=== PATIENT | female | born 1960 | race Caucasian/White ===

== ENCOUNTER 2016-11-19 17:32 | Emergency (ER) | payer SELFPAY ==
[~2016-11-19] VITALS: Ht 165.1 cm; Wt 53.8 kg
[~2016-11-19 17:32] MED LIST: ADDE20 PO; OXYC1TAB63 PO; XANA2TAB2 PO
[2016-11-19 17:36] VITALS: BP 124/61; PULSE 98; RESP 16; TEMP 99.5; O2SAT 100
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
--- NOTE | 2016-11-19 18:13 | RADHPO ---
EXAM DATE/TIME: 11/19/2016 17:57 [facility] COMPARISON: No previous studies available for comparison. INDICATIONS : Left 3rd digit pain and swelling post injury last evening. MEDICAL HISTORY : None. SURGICAL HISTORY : None. ENCOUNTER: Initial ACUITY: 1 day PAIN SCORE: 8/10 LOCATION: Left proximal phalangeal joint FINDINGS: Soft tissue swelling is noted involving the left third digit. There is no acute fracture or dislocati on. CONCLUSION: No acute fracture or dislocation. Soft tissue swelling involving the left third digit. Lamonte Lugo MD on November 19, 2016 at 18:10 Board Certified Radiologist. This report was verified electronically.
[2016-11-19] MEDS ORDERED: IBUP800T23 PO (18:25)
== END 2016-11-19 18:30 | disposition home or self-care (01) ==
LOC: PHEFT 17:32
DX: S60.032A Contusion of left middle finger without damage to nail, initial encounter (principal); W50.0XXA Accidental hit or strike by another person, initial encounter
CPT/HCPCS: 73130; 99283

== ENCOUNTER 2016-11-26 20:54 | Emergency (ER) | payer OTHER ==
[~2016-11-26] VITALS: Ht 165.1 cm; Wt 55.0 kg
[~2016-11-26 20:54] MED LIST changes: -ADDE20 PO; +IBUP800T23 PO; -OXYC1TAB63 PO; -XANA2TAB2 PO
[2016-11-26 21:03] VITALS: BP 112/74; PULSE 90; RESP 18; TEMP 97.9; O2SAT 100
[2016-11-26 21:38] VITALS: BP 115/67; PULSE 84; RESP 16; TEMP 98.9; O2SAT 98
--- NOTE | 2016-11-26 21:40 | PD ---
HPI Chief Complaint: Psychiatric Symptoms Time Seen by Provider: 21:34 Travel History International Travel<30 days: No Contact w/Intl Traveler<30days: No Traveled to known affect area: No History of Present Illness HPI 56-year-old female brought in by PD under Bennett act. According to the Bennett act the patient does not have her chronic medications to control her suicidal thoughts that she has been self-medicating with alcohol and narcotics. The Bennett act states that the patient wants to harm herself and does not want to wake up in the morning. Patient admits to drinking alcohol today. She states that she usually takes Xanax and Adderall that is prescribed by her primary care physician, however she is out of these medications. She denies using any illicit drugs today. She denies any physical complaints. Upon arrival to the emergency department the patient was very aggressive toward staff and was placed in 4 point restrains as she was a danger to both herself and staff. PFSH Past Medical History Blood Disorders: No Bipolar Disorder: Yes Anxiety: Yes Depression: Yes Cardiovascular Problems: No COPD: Yes Diabetes: No Diminished Hearing: No Endocrine: No Fibromyalgia: Yes GERD: Yes Genitourinary: No Hepatitis: Yes ( Hep C) Immune Disorder: No Musculoskeletal: Yes (Chronic low back pain) Neurologic: Yes ("Nerve problems" back and neck ) Psychiatric: Yes Reproductive: No Respiratory: Yes (COPD) Immunizations Current: Yes Ulcer: Yes ?: Not Menopausal: Yes : 5 Para: 3 Miscarriage: 2 Dilation and Curettage (D&C): Yes Past Surgical History Oral Surgery: Yes (Teeth) Tonsillectomy: Yes Other Surgery: Yes (Tonsillectomy) Social History Alcohol Use: Yes (ALCOHOL ON BOARD TODAY) Tobacco Use: Yes (1 PPD) Substance Use: Yes (CRACK, COCAINE ) Allergies-Medications (Allergen,Severity, Reaction): Coded Allergies: No Known Allergies (Unverified , 11/26/16) Reported Meds & Prescriptions Reported Meds & Active Scripts Active Ibuprofen 800 Mg Tab 800 Mg PO TID Review of Systems Except as stated in HPI: all other systems reviewed are Neg Physical Exam Narrative GENERAL: Well-developed, thin, awake, alert, no acute distress. SKIN: Focused skin assessment warm/dry. HEAD: Atraumatic. Normocephalic. EYES: Pupils equal and round. No scleral icterus. No injection or drainage. ENT: No nasal bleeding or discharge. Mucous membranes pink and moist. Poor dentition. NECK: Trachea midline. No JVD. No nuchal rigidity. CARDIOVASCULAR: Regular rate and rhythm. RESPIRATORY: No accessory muscle use. Clear to auscultation. Breath sounds equal bilaterally. GASTROINTESTINAL: Abdomen soft, non-tender, nondistended. MUSCULOSKELETAL: No obvious deformities. No clubbing. No cyanosis. No edema. NEUROLOGICAL: Awake and alert. No obvious cranial nerve deficits. Motor grossly within normal limits. Normal speech. PSYCHIATRIC: Appears intoxicated. Data Data Last Documented VS Vital Signs Date Time Temp Pulse Resp B/P Pulse Ox O2 Delivery O2 Flow Rate FiO2 11/26/16 21:38 98.9 84 16 115/67 98 Room Air Orders Complete Blood Count With Diff (11/26/16 21:01) Comprehensive Metabolic Panel (11/26/16 21:01) Urinalysis - C+S If Indicated (11/26/16 21:01) Psych Screen (11/26/16 21:01) Drug Screen, Random Urine (11/26/16 21:01) Alcohol (Ethanol) (11/26/16 21:01) Salicylates (Aspirin) (11/26/16 21:01) Tylenol (Acetaminophen) (11/26/16 21:01) Labs Laboratory Tests Test 11/26/16 11/26/16 22:55 23:00 White Blood Count 12.9 TH/MM3 Red Blood Count 5.63 MIL/MM3 Hemoglobin 10.7 GM/DL Hematocrit 34.0 % Mean Corpuscular Volume 60.4 FL Mean Corpuscular Hemoglobin 19.1 PG Mean Corpuscular Hemoglobin 31.6 % Concent Red Cell Distribution Width 31.7 % Platelet Count 408 TH/MM3 Mean Platelet Volume 9.4 FL Neutrophils (%) (Auto) 64.4 % Lymphocytes (%) (Auto) 30.0 % Monocytes (%) (Auto) 4.0 % Eosinophils (%) (Auto) 0.7 % Basophils (%) (Auto) 0.9 % Neutrophils # (Auto) 8.3 TH/MM3 Lymphocytes # (Auto) 3.9 TH/MM3 Monocytes # (Auto) 0.5 TH/MM3 Eosinophils # (Auto) 0.1 TH/MM3 Basophils # (Auto) 0.1 TH/MM3 CBC Comment AUTO DIFF Salicylates Level 5.1 MG/DL Sodium Level 146 MEQ/L Potassium Level 3.9 MEQ/L Chloride Level 109 MEQ/L Carbon Dioxide Level 27.2 MEQ/L Anion Gap 10 MEQ/L Blood Urea Nitrogen 11 MG/DL Creatinine 0.71 MG/DL Estimat Glomerular Filtration 86 ML/MIN Rate Random Glucose 80 MG/DL Calcium Level 8.3 MG/DL Total Bilirubin 0.2 MG/DL Aspartate Amino Transf 37 U/L (AST/SGOT) Alanine Aminotransferase 29 U/L (ALT/SGPT) Alkaline Phosphatase 96 U/L Total Protein 8.1 GM/DL Albumin 4.0 GM/DL Acetaminophen Level LESS THAN 2.0 MCG/ML Ethyl Alcohol Level 279 MG/DL Urine Color LIGHT-YELLOW Urine Turbidity CLEAR Urine pH 5.0 Urine Specific [place] 1.008 Urine Protein TRACE mg/dL Urine Glucose (UA) NEG mg/dL Urine Ketones NEG mg/dL Urine Occult Blood TRACE Urine Nitrite NEG Urine Bilirubin NEG Urine Urobilinogen LESS THAN 2.0 MG/DL Urine Leukocyte Esterase NEG Urine WBC 1 /hpf Urine Squamous Epithelial 3 /hpf Cells Microscopic Urinalysis Comment CULT NOT INDICATED Urine Opiates Screen NEG Urine Barbiturates Screen NEG Urine Amphetamines Screen NEG Urine Benzodiazepines Screen NEG Urine Cocaine Screen NEG Urine Cannabinoids Screen NEG MDM Medical Decision Making Medical Screen Exam Complete: Yes Emergency Medical Condition: Yes Differential Diagnosis Alcohol intoxication, drug intoxication, suicidal ideation, depression, drug induced mood disorder Narrative Course Vital signs and labs reviewed. Alcohol level is 279. The patient is medically cleared for psychiatric evaluation and disposition by them. Diagnosis Primary Impression: Alcohol intoxication Qualified Code: F10.120 - Alcohol intoxication, uncomplicated Additional Impression: Suicidal ideation Chapincito Mackey MD Nov 26, 2016 21:40
[2016-11-26 23:11] LABS: AUTOMATED NEUTROPHIL # 8.3 TH/MM3 (1.8-7.7); BASOPHIL # 0.1 TH/MM3 (0-0.2); BASOPHIL % 0.9 % (0.0-2.0); EOSINOPHIL # 0.1 TH/MM3 (0-0.4); EOSINOPHIL % 0.7 % (0.0-4.0); LYMPHOCYTE # 3.9 TH/MM3 (1.0-4.8); MEAN CELL VOLUME 60.4 FL (80.0-100.0); MEAN CORPUSCULAR HEMOGLOBIN 19.1 PG (27.0-34.0); MEAN CORPUSCULAR HGB CONC 31.6 % (32.0-36.0); NEUT % 64.4 % (16.0-70.0); PLATELET COUNT 408 TH/MM3 (150-450); RED BLOOD COUNT 5.63 MIL/MM3 (4.00-5.30); RED CELL DISTRIBUTION WIDTH 31.7 % (11.6-17.2); WHITE BLOOD COUNT 12.9 TH/MM3 (4.0-11.0)
[2016-11-26 23:14] LABS: BLOOD, URINE TRACE (NEG); COMMENT (UR) CULT NOT INDICATED; CULTURE IF INDICATED CULT NOT INDICATED; GLUCOSE,URINE NEG (NEG); KETONE, URINE NEG (NEG); NITRITE,URINE NEG (NEG); SQUAMOUS EPITHELIAL CELL URINE 3 /hpf (0-5); URINE COLOR LIGHT-YELLOW (YELLW/STRAW)
[2016-11-26 23:20] LABS: AMPHETAMINE, URINE NEG (NEG); BARBITURATES, URINE NEG (NEG); COCAINE, URINE NEG (NEG)
[2016-11-26 23:22] LABS: HEMO FLAGS AUTO DIFF
[2016-11-26 23:28] LABS: ANION GAP 10 MEQ/L (5-15)
[2016-11-26 23:31] LABS: ALKALINE PHOSPHATASE 96 U/L (45-117); ALT (GPT) 29 U/L (10-53); AST (GOT) 37 U/L (15-37); BICARBONATE 27.2 MEQ/L (21.0-32.0); BLOOD UREA NITROGEN 11 MG/DL (7-18); CHLORIDE 109 MEQ/L (98-107); GLOMERULAR FILTRATION RATE 86 ML/MIN (>89); POTASSIUM 3.9 MEQ/L (3.5-5.1); SODIUM (NA) 146 MEQ/L (136-145); TOTAL BILIRUBIN ADULT 0.2 MG/DL (0.2-1.0)
[2016-11-27 00:06] LABS: ACETAMINOPHEN LESS THAN 2.0 MCG/ML (10.0-30.0)
[2016-11-27 02:06] LABS: OVALOCYTES 1+ (NORMAL); SCAN/DIFF AUTO DIFF CONFIRMED; TARGET CELLS 1+ (NORMAL)
[2016-11-27 02:07] LABS: PLATELET ESTIMATE SMEAR NORMAL (NORMAL); PLATELET MORPHOLOGY ENLARGED (NORMAL)
[2016-11-27 04:00] VITALS: BP 123/78; PULSE 88; RESP 16; O2SAT 95
[2016-11-27 08:14] VITALS: BP 143/68; PULSE 98; RESP 16; O2SAT 98
--- NOTE | 2016-11-27 09:38 | PD.CONS ---
Provisional Diagnosis Admission Date [place] I. Alcohol-induced mood disorder, alcohol intoxication, alcohol use disorder [place] II. Deferred [place] III. She denies [place] IV. Continuous alcohol use disorder [place] V. 57 History of Present Illness Service Psychiatry Consult Requested By Primary Care Physician No Primary Care Physician HPI The patient is a 56-year-old woman, domiciled in [place] with her son, unemployed, on SSI process, , with psychiatric history of alcohol use disorder, ER visits under Bennett act due to alcohol related problems, anxiety, depression, no previous psychiatric hospitalizations, no previous suicidal attempts, no significant medical history, brought to the ER in by PD under Bennett act. According to the Bennett act the patient does not have her chronic medications to control her suicidal thoughts that she has been self-medicating with alcohol and narcotics. The Bennett act states that the patient wants to harm herself and does not want to wake up in the morning. 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 At this moment the patient denies depressive symptoms, she denies anxiety, she denies zeeshan, she denies psychosis she denies visual and auditory hallucinations, she denies suicidal or homicidal ideation. No agitation, no aggressive behavior observed. Patient admits to drinking alcohol today, she says that she is not an alcoholic, she doesn't drink everyday, but in binges. She states that she usually takes Xanax and Adderall that is prescribed by her primary care physician, however she is out of these medications. She denies using any illicit drugs today. Review of Systems Constitutional: DENIES: Diaphoretic episodes, Fatigue, Fever, Weight gain, Weight loss, Chills, Dizziness, Change in appetite, Night Sweats Endocrine: DENIES: Abnorml menstrual pattern, Heat/cold intolerance, Polydipsia , Polyuria, Polyphagia Eyes: DENIES: Blurred vision, Diplopia, Eye inflammation, Eye pain, Vision loss , Photosensitivity, Double Vision Ears, nose, mouth, throat: DENIES: Tinnitus, Hearing loss, Vertigo, Nasal discharge, Oral lesions, Throat pain, Hoarseness, Ear Pain, Running Nose, Epistaxis, Sinus Pain, Toothache, Odynophagia Respiratory: DENIES: Apneas, Cough, Snoring, Wheezing, Hemoptysis, Sputum production, Shortness of breath Cardiovascular: DENIES: Chest pain, Palpitations, Syncope, Dyspnea on Exertion , PND, Lower Extremity Edema, Orthopnea, Claudication Gastrointestinal: DENIES: Abdominal pain, Black stools, Bloody stools, Constipation, Diarrhea, Nausea, Vomiting, Difficulty Swallowing, Anorexia Integumentary: DENIES: Abnormal pigmentation, Pruritus, Rash, Nail changes, Breast masses, Breast skin changes, Nipple discharge Hematologic/lymphatic: DENIES: Bruising, Lymphadenopathy Immunologic/allergic: DENIES: Eczema, Urticaria Neurologic: DENIES: Abnormal gait, Headache, Localized weakness, Paresthesias, Seizures, Speech Problems, Tremor, Poor Balance Psychiatric: DENIES: Anxiety, Confusion, Mood changes, Depression, Hallucinations, Agitation, Suicidal Ideation, Homicidal Ideation, Delusions Past Family Social History Coded Allergies: No Known Allergies (Unverified , 11/26/16) Active Scripts Ibuprofen 800 Mg Gch127 Mg PO TID #21 TAB Prov:Adama Coker MD 11/19/16 Family History She denies Social History Patient was born and raised in [facility], she lives with her son in [place], she is , unemployed, on SSI process her highest level of education is ninth grade Physical Exam Vital Signs Vital Signs Date Time Temp Pulse Resp B/P Pulse Ox O2 Delivery O2 Flow Rate FiO2 11/27/16 08:21 11/27/16 08:14 98 16 98 Room Air 11/26/16 21:38 98.9 Mental Status Examination Appearance woman, age appearing, [facility], she is calm, and cooperative Speech: Unremarkable Orientation: x3 Thought Process: Logical Thought Content: Unremarkable Hallucination Type: None Suicidal Ideation: No Previous Suicide Attempts: No Homicidal Ideation: No Previous Homicide Attempts: No Judgement: WNL Affect: Good Mood: Appropriate Motor Activity: Normal gait Assessment & Plan Problem List: (1) Alcohol-induced mood disorder Assessment & Plan: Psychotic evaluation today the patient does not present any acute, concerning or significant objective or subjective symptomatology of depression, anxiety, zeeshan or psychosis. The patient denies suicidal or homicidal ideation. The patient denies visual and auditory hallucinations. Recent aggressive behavior, suicidal statement were secondary to acute alcohol intoxication and no to a major psychiatric illness decompensation. Patient does not meet criteria for psychiatric admission at this moment. Extensive psychoeducation, support, motivation provided. Patient would really benefit of a detox/rehabilitation program. BAL on arrival was 279. She was referred to [facility] detox program. She is #8 in the list now. Bennett act will be lifted. ICD Code: F10.94 Assessment & Plan Estimated LOS: Moses Zurita MD Nov 27, 2016 09:38
[2016-11-28] MEDS ORDERED: ADDE20 PO (16:40)
[2016-11-28] MEDS ORDERED: XANA2TAB2 PO (16:40)
== END 2016-11-27 08:21 ==
LOC: NEPA 20:54
DX: F10.120 Alcohol abuse with intoxication, uncomplicated (principal); Y90.8 Blood alcohol level of 240 mg/100 ml or more
CPT/HCPCS: 80053; 80307; 81001; 85025; 99285

== ENCOUNTER 2016-11-28 15:50 | Emergency (ER) | payer OTHER ==
[~2016-11-28] VITALS: Ht 165.1 cm; Wt 54.0 kg
--- NOTE | 2016-11-28 16:15 | PD ---
HPI Chief Complaint: ba Time Seen by Provider: 16:14 Travel History International Travel<30 days: No Contact w/Intl Traveler<30days: No Traveled to known affect area: No History of Present Illness HPI 56-year-old female with history of bipolar disorder, COPD, chronic pain, and substance abuse, presents to the emergency department under Bennett act for psychiatric evaluation. Patient states that "I'm a drunk and a druggie." Patient states she's been given medication for anxiety but she "doesn't know how to take medication." She states that she "eats them like coming beers." States that when she does not have drug she drinks alcohol on that so she has been doing today. States that she is homicidal and "will kill anything that gets in her way." This is not directed toward anyone in particular. Denies suicidal ideations. She has no other symptoms to report. PFSH Past Medical History Blood Disorders: No Bipolar Disorder: Yes Anxiety: Yes Depression: Yes Cardiovascular Problems: No COPD: Yes Diabetes: No Diminished Hearing: No Endocrine: No Fibromyalgia: Yes GERD: Yes Genitourinary: No Hepatitis: Yes ( Hep C) Immune Disorder: No Musculoskeletal: Yes (Chronic low back pain) Neurologic: Yes ("Nerve problems" back and neck ) Psychiatric: Yes Reproductive: No Respiratory: Yes (COPD) Immunizations Current: Yes Ulcer: Yes Menopausal: Yes : 5 Para: 3 Miscarriage: 2 Dilation and Curettage (D&C): Yes Past Surgical History Oral Surgery: Yes (Teeth) Tonsillectomy: Yes Other Surgery: Yes (Tonsillectomy) Social History Alcohol Use: Yes (ALCOHOL ON BOARD TODAY) Tobacco Use: Yes (1 PPD) Substance Use: Yes (CRACK, COCAINE ) Allergies-Medications (Allergen,Severity, Reaction): Coded Allergies: No Known Allergies (Unverified , 11/28/16) Reported Meds & Prescriptions Reported Meds & Active Scripts Active Ibuprofen 800 Mg Tab 800 Mg PO TID Reported Adderall (Amphetamine-Dextroamphetamine) 20 Mg Tab 20 Mg PO BID Avoid late evening doses. Space doses at least 4 to 6 hours if more than once/day dosing. Xanax (Alprazolam) 2 Mg Tab 2 Mg PO BID Review of Systems ROS Limitations: Intoxication Except as stated in HPI: all other systems reviewed are Neg Physical Exam Exam Limitations: Intoxication Narrative GENERAL: Unkempt female patient, clinically intoxicated, aggressive, but in no acute distress SKIN: Focused skin assessment warm/dry. Abrasion over the dorsal right hand. HEAD: Atraumatic. Normocephalic. EYES: Pupils equal and round. No scleral icterus. No injection or drainage. ENT: No nasal bleeding or discharge. Mucous membranes pink and moist. NECK: Trachea midline. No JVD. CARDIOVASCULAR: Regular rate and rhythm. No murmur appreciated. RESPIRATORY: No accessory muscle use. Clear to auscultation. Breath sounds equal bilaterally. GASTROINTESTINAL: Abdomen soft, non-tender, nondistended. Hepatic and splenic margins not palpable. MUSCULOSKELETAL: No obvious deformities. No clubbing. No cyanosis. No edema. NEUROLOGICAL: Awake and alert. No obvious cranial nerve deficits. Motor grossly within normal limits. Normal speech. Data Data Last Documented VS Vital Signs Date Time Temp Pulse Resp B/P Pulse Ox O2 Delivery O2 Flow Rate FiO2 11/28/16 22:24 65 19 119/59 98 Room Air 11/28/16 19:17 98.1 Orders Psych Screen (11/28/16 16:10) Restraints Non-Violent GREGORY.Q3H (11/28/16 16:32) Lorazepam Inj (Ativan Inj) (11/28/16 17:00) Complete Blood Count With Diff (11/28/16 17:54) Comprehensive Metabolic Panel (11/28/16 17:54) Drug Screen, Random Urine (11/28/16 17:54) Alcohol (Ethanol) (11/28/16 17:54) Ibuprofen (Motrin) (11/28/16 21:30) Labs Laboratory Tests Test 11/28/16 11/28/16 16:42 17:55 White Blood Count 9.9 TH/MM3 Red Blood Count 6.16 MIL/MM3 Hemoglobin 11.9 GM/DL Hematocrit 38.6 % Mean Corpuscular Volume 62.6 FL Mean Corpuscular Hemoglobin 19.3 PG Mean Corpuscular Hemoglobin 30.9 % Concent Red Cell Distribution Width 33.0 % Platelet Count 446 TH/MM3 Mean Platelet Volume 9.1 FL Neutrophils (%) (Auto) 52.4 % Lymphocytes (%) (Auto) 40.5 % Monocytes (%) (Auto) 5.2 % Eosinophils (%) (Auto) 0.8 % Basophils (%) (Auto) 1.1 % Neutrophils # (Auto) 5.2 TH/MM3 Lymphocytes # (Auto) 4.0 TH/MM3 Monocytes # (Auto) 0.5 TH/MM3 Eosinophils # (Auto) 0.1 TH/MM3 Basophils # (Auto) 0.1 TH/MM3 CBC Comment AUTO DIFF Differential Comment AUTO DIFF CONFIRMED Platelet Estimate HIGH Platelet Morphology Comment ENLARGED Target Cells 1+ Ovalocytes 1+ Keratocytes OCC Sodium Level 145 MEQ/L Potassium Level 3.9 MEQ/L Chloride Level 112 MEQ/L Carbon Dioxide Level 22.7 MEQ/L Anion Gap 10 MEQ/L Blood Urea Nitrogen 9 MG/DL Creatinine 0.83 MG/DL Estimat Glomerular Filtration 72 ML/MIN Rate Random Glucose 103 MG/DL Calcium Level 8.8 MG/DL Total Bilirubin 0.3 MG/DL Aspartate Amino Transf 31 U/L (AST/SGOT) Alanine Aminotransferase 28 U/L (ALT/SGPT) Alkaline Phosphatase 106 U/L Total Protein 8.7 GM/DL Albumin 4.1 GM/DL Ethyl Alcohol Level 300 MG/DL Urine Opiates Screen NEG Urine Barbiturates Screen NEG Urine Amphetamines Screen NEG Urine Benzodiazepines Screen NEG Urine Cocaine Screen NEG Urine Cannabinoids Screen NEG MDM Medical Decision Making Medical Screen Exam Complete: Yes Emergency Medical Condition: Yes Medical Record Reviewed: Yes Differential Diagnosis Intoxication versus mood disorder versus personality disorder versus adjustment reaction disorder Narrative Course 56-year-old female presents to emergency department under Bennett act for psychiatric evaluation. Patient appears clinically intoxicated. She is aggressive and verbally abusive toward staff. Patient is medicated with Ativan. She is at risk of harming herself or staff. CBC and CMP are without acute concern. Toxicology is negative. EtOH is 300. Patient is medically cleared to undergo psychiatric screening for further evaluation and disposition. Mental health screening discussed with the patient. Psychiatric screen ordered. Diagnosis Primary Impression: Alcohol-induced mood disorder Condition: Stable Mara Mondragon Nov 28, 2016 16:15
[2016-11-28 16:34] VITALS: BP 128/91; PULSE 109; RESP 16; TEMP 98.1; O2SAT 98
[2016-11-28] MEDS ORDERED: XANA2TAB2 PO (16:40)
[2016-11-28] MEDS ORDERED: ADDE20 PO (16:40)
[2016-11-28] MEDS ORDERED: LORazepam 2 MG/ML VIAL IM ONE (17:00)
[2016-11-28 18:35] LABS: AUTOMATED NEUTROPHIL # 5.2 TH/MM3 (1.8-7.7); BASOPHIL # 0.1 TH/MM3 (0-0.2); BASOPHIL % 1.1 % (0.0-2.0); EOSINOPHIL # 0.1 TH/MM3 (0-0.4); EOSINOPHIL % 0.8 % (0.0-4.0); HEMATOCRIT 38.6 % (35.0-46.0); LYMPH % 40.5 % (9.0-44.0); MEAN CELL VOLUME 62.6 FL (80.0-100.0); MEAN CORPUSCULAR HEMOGLOBIN 19.3 PG (27.0-34.0); MEAN CORPUSCULAR HGB CONC 30.9 % (32.0-36.0); MONO % 5.2 % (0.0-8.0); NEUT % 52.4 % (16.0-70.0); PLATELET COUNT 446 TH/MM3 (150-450); RED BLOOD COUNT 6.16 MIL/MM3 (4.00-5.30); WHITE BLOOD COUNT 9.9 TH/MM3 (4.0-11.0)
[2016-11-28 18:41] LABS: HEMO FLAGS AUTO DIFF
[2016-11-28 18:48] LABS: AMPHETAMINE, URINE NEG (NEG); BARBITURATES, URINE NEG (NEG); COCAINE, URINE NEG (NEG)
[2016-11-28 19:01] LABS: ANION GAP 10 MEQ/L (5-15); AST (GOT) 31 U/L (15-37); BICARBONATE 22.7 MEQ/L (21.0-32.0); BLOOD UREA NITROGEN 9 MG/DL (7-18); CHLORIDE 112 MEQ/L (98-107); GLOMERULAR FILTRATION RATE 72 ML/MIN (>89); POTASSIUM 3.9 MEQ/L (3.5-5.1); SODIUM (NA) 145 MEQ/L (136-145)
[2016-11-28 19:06] LABS: ALKALINE PHOSPHATASE 106 U/L (45-117); ALT (GPT) 28 U/L (10-53); TOTAL BILIRUBIN ADULT 0.3 MG/DL (0.2-1.0)
[2016-11-28 19:17] VITALS: BP 107/71; PULSE 94; RESP 18; TEMP 98.1; O2SAT 99
[2016-11-28 19:23] LABS: KERATOCYTES OCC (NORMAL); OVALOCYTES 1+ (NORMAL); TARGET CELLS 1+ (NORMAL)
[2016-11-28 19:24] LABS: PLATELET ESTIMATE SMEAR HIGH (NORMAL); PLATELET MORPHOLOGY ENLARGED (NORMAL); SCAN/DIFF AUTO DIFF CONFIRMED
[2016-11-28] MEDS ORDERED: IBUPROFEN 800 MG TAB PO ONE (21:30)
[2016-11-28 22:24] VITALS: BP 119/59; PULSE 65; RESP 19; O2SAT 98
[2016-11-29 02:00] VITALS: RESP 19
[2016-11-29 06:00] VITALS: BP 133/60; PULSE 66; RESP 17; O2SAT 97
--- NOTE | 2016-11-29 11:18 | PD.CONS ---
Provisional Diagnosis Admission Date [place] I. Alcohol-induced mood disorder, alcohol use disorder, bipolar [place] II. Unspecified personality disorder [place] III. COPD History of Present Illness Service Psychiatry Consult Requested By Primary Care Physician No Primary Care Physician HPI The patient is a 56-year-old woman, domiciled in [place] with her son, unemployed, on SSI process, , with psychiatric history of alcohol use disorder, self reported bipolar disorder ER visits under Bennett act due to alcohol related problems, anxiety, depression, no previous psychiatric hospitalizations, no previous suicidal attempts, no significant medical history , brought to the ER in by PD under Bennett act. Patient was verbalizing on a specific homicidal ideation in the ER while intoxicated, her initial BAL was 300. She was seen for a very similar presentation 2 days ago by psychiatry and released. Today On psychiatric evaluation patient is now clinically sober, fully awake, stating the last night she was drunk and she was not the patient scheduling manager of her actions, she doesn't even remember what she stated. At this moment the patient denies depressive symptoms, she denies anxiety, she denies zeeshan, she denies psychosis she denies visual and auditory hallucinations, she denies suicidal or homicidal ideation. No agitation, no aggressive behavior observed. Patient admits to drinking alcohol today, she says that she is not an alcoholic, she doesn't drink everyday, but in binges. She states that she usually takes Xanax and Adderall that is prescribed by her primary care physician, however she is out of these medications. She denies using any illicit drugs today. Collateral information from her daughter Melanie Engle was obtained, she says that her mother has been abusing alcohol every day. She says there isn't her mother is abusing alcohol is because her prescribed medication, Xanax and Adderall has not been given by the PCP. She states her mother is not a threat to self and others, but her brother things that Bennett acting her is going to help her. She says that she understand what her mother needs is a detox and rehabilitation program. She doesn't have any safety concern at this moment. Her brother will come to scrap picker the patient this morning who will take her back home. Review of Systems Constitutional: DENIES: Diaphoretic episodes, Fatigue, Fever, Weight gain, Weight loss, Chills, Dizziness, Change in appetite, Night Sweats Endocrine: DENIES: Abnorml menstrual pattern, Heat/cold intolerance, Polydipsia , Polyuria, Polyphagia Eyes: DENIES: Blurred vision, Diplopia, Eye inflammation, Eye pain, Vision loss , Photosensitivity, Double Vision Ears, nose, mouth, throat: DENIES: Tinnitus, Hearing loss, Vertigo, Nasal discharge, Oral lesions, Throat pain, Hoarseness, Ear Pain, Running Nose, Epistaxis, Sinus Pain, Toothache, Odynophagia Respiratory: DENIES: Apneas, Cough, Snoring, Wheezing, Hemoptysis, Sputum production, Shortness of breath Cardiovascular: DENIES: Chest pain, Palpitations, Syncope, Dyspnea on Exertion , PND, Lower Extremity Edema, Orthopnea, Claudication Musculoskeletal: DENIES: Joint pain, Muscle aches, Stiffness, Joint Swelling, Back pain, Neck pain Integumentary: DENIES: Abnormal pigmentation, Pruritus, Rash, Nail changes, Breast masses, Breast skin changes, Nipple discharge Immunologic/allergic: DENIES: Eczema, Urticaria Neurologic: DENIES: Abnormal gait, Headache, Localized weakness, Paresthesias, Seizures, Speech Problems, Tremor, Poor Balance Psychiatric: DENIES: Anxiety, Confusion, Mood changes, Depression, Hallucinations, Agitation, Suicidal Ideation, Homicidal Ideation, Delusions Past Family Social History Coded Allergies: No Known Allergies (Unverified , 11/28/16) Active Scripts Ibuprofen 800 Mg [id number] Mg PO TID #21 TAB Prov:Adama Coker MD 11/19/16 Reported Medications Amphetamine-Dextroamphetamine (Adderall)20 Mg Tab20 Mg PO BID #60 TAB Ref 0 Avoid late evening doses. Space doses at least 4 to 6 hours if more than once/day dosing. 11/28/16 Alprazolam (Xanax)2 Mg Tab2 Mg PO BID Ref 0 11/28/16 Family History She denies Social History Patient was born and raised in [facility], she lives with her son in [place], she is , unemployed, on SSI process her highest level of education is ninth grade Patient's Strengths (min. 2) Family support Physical Exam Vital Signs Vital Signs Date Time Temp Pulse Resp B/P Pulse Ox O2 Delivery O2 Flow Rate FiO2 11/29/16 06:00 66 17 133/60 97 Room Air 11/28/16 19:17 98.1 Mental Status Examination Appearance woman, age appearing, good hygiene, calm and cooperative Speech: Unremarkable Orientation: x3 Thought Process: Logical Thought Content: Unremarkable Hallucination Type: None Suicidal Ideation: No Previous Suicide Attempts: No Homicidal Ideation: No Previous Homicide Attempts: No Insight: Good Affect: Good Mood: Appropriate Motor Activity: Normal gait Assessment & Plan Problem List: (1) Alcohol-induced mood disorder Assessment & Plan: On psychiatric evaluation today the patient does not present any acute, concerning or significant objective or subjective symptomatology of depression, anxiety, zeeshan or psychosis. The patient denies suicidal or homicidal ideation. The patient denies visual and auditory hallucinations. Recent aggressive behavior, suicidal statement were secondary to acute alcohol intoxication and no to a major psychiatric illness decompensation. Patient does not meet criteria for psychiatric admission at this moment. Extensive psychoeducation, support, motivation provided. Patient would really benefit of a detox/rehabilitation program. BAL on arrival was 300. [facility]. She is #8 in the list now. Bennett act will be lifted ICD Code: F10.94 Assessment & Plan Estimated LOS: Moses Zurita MD Nov 29, 2016 11:18
== END 2016-11-29 09:30 | disposition home or self-care (01) ==
LOC: NEDAMB 15:50 → NEPJ 11-29 09:30
DX: F10.94 Alcohol use, unspecified with alcohol-induced mood disorder (principal); F17.200 Nicotine dependence, unspecified, uncomplicated; Z86.59 Personal history of other mental and behavioral disorders; Z87.09 Personal history of other diseases of the respiratory system; Z87.39 Personal history of other diseases of the musculoskeletal system and connective tissue; Z87.19 Personal history of other diseases of the digestive system; Z86.19 Personal history of other infectious and parasitic diseases; Z86.69 Personal history of other diseases of the nervous system and sense organs
CPT/HCPCS: 80053; 80307; 85025; 96372; 99285; J2060

== ENCOUNTER 2016-12-17 03:49 | Emergency (ER) | payer OTHER ==
[~2016-12-17] VITALS: Ht 165.1 cm; Wt 55.0 kg
[~2016-12-17 03:49] MED LIST changes: +ADDE20 PO; +XANA2TAB2 PO
[2016-12-17 03:57] VITALS: BP 94/51; PULSE 84; RESP 16; TEMP 98.7; O2SAT 98
[2016-12-17] MEDS ORDERED: PANT20 PO (04:05)
--- NOTE | 2016-12-17 04:07 | PD ---
HPI Chief Complaint: Psychiatric Symptoms Time Seen by Provider: 04:02 Travel History International Travel<30 days: No Contact w/Intl Traveler<30days: No Traveled to known affect area: No History of Present Illness HPI 36-year-old white female presents to emergency department under Bennett act by PD. The patient admits to drinking alcohol this evening. She has a history of alcohol abuse. She had cut herself with some glass on her left wrist as an attention-getting action. The patient states that her kids stay at home and smoke marijuana. She states that she truly does not want to hurt herself. She did make a statement that she does not want to wake up in the morning. She does Have complaints of chronic back pain with sciatica. She also states that she has severe anxiety and panic disorder. She states that she also takes Klonopin and Xanax for her anxiety and panic attacks. No homicidal ideation. PFSH Past Medical History Blood Disorders: No Bipolar Disorder: Yes Anxiety: Yes Depression: Yes Cardiovascular Problems: No COPD: Yes Diabetes: No Diminished Hearing: No Endocrine: No Fibromyalgia: Yes GERD: Yes Genitourinary: No Hepatitis: Yes ( Hep C) Immune Disorder: No Musculoskeletal: Yes (Chronic low back pain) Neurologic: Yes ("Nerve problems" back and neck ) Psychiatric: Yes Reproductive: No Respiratory: Yes (COPD) Immunizations Current: Yes Ulcer: Yes Menopausal: Yes : 5 Para: 3 Miscarriage: 2 Dilation and Curettage (D&C): Yes Past Surgical History Oral Surgery: Yes (Teeth) Tonsillectomy: Yes Other Surgery: Yes (Tonsillectomy) Social History Alcohol Use: Yes (ALCOHOL ON BOARD TODAY) Tobacco Use: Yes (1 PPD) Substance Use: Yes (CRACK, COCAINE ) Allergies-Medications (Allergen,Severity, Reaction): Coded Allergies: No Known Allergies (Unverified , 11/28/16) Reported Meds & Prescriptions Reported Meds & Active Scripts Active Ibuprofen 800 Mg Tab 800 Mg PO TID Reported Protonix (Pantoprazole Sodium) 20 Mg Tab 20 Mg PO DAILY Adderall (Amphetamine-Dextroamphetamine) 20 Mg Tab 20 Mg PO BID Avoid late evening doses. Space doses at least 4 to 6 hours if more than once/day dosing. Xanax (Alprazolam) 2 Mg Tab 2 Mg PO BID Review of Systems ROS Limitations: Intoxication Except as stated in HPI: all other systems reviewed are Neg Psychiatric: Positive: Anxiety, Depression, Mood Disorder, Substance Abuse ( alcohol), No: Suicidal Ideations, Disorder of Thought, Homicidal Ideation Physical Exam Narrative GENERAL: Well-nourished, well-developed patient. Appears intoxicated. Ataxic gait. SKIN: Warm and dry. HEAD: Normocephalic and atraumatic. EYES: No scleral icterus. No injection or drainage. ENT: No nasal drainage noted. Mucous membranes pink. Airway patent. NECK: Supple, trachea midline. Moves head freely without obvious discomfort. CARDIOVASCULAR: Regular rate and rhythm without murmurs, gallops, or rubs. RESPIRATORY: Breath sounds equal bilaterally. No accessory muscle use. GASTROINTESTINAL: Abdomen soft, non-tender, nondistended. EXTREMITIES: No cyanosis or edema. BACK: Nontender without obvious deformity. No CVA tenderness. NEURO: Patient is alert and oriented. no sensorimotor deficits. Nonfocal. Very slurred speech. PSYCH: No delusions. No auditory or visual hallucinations. Appears intoxicated Data Data Last Documented VS Vital Signs Date Time Temp Pulse Resp B/P Pulse Ox O2 Delivery O2 Flow Rate FiO2 12/17/16 03:57 98.7 84 16 94/51 98 Orders Complete Blood Count With Diff (12/17/16 04:01) Comprehensive Metabolic Panel (12/17/16 04:01) Psych Screen (12/17/16 04:01) Drug Screen, Random Urine (12/17/16 04:01) Alcohol (Ethanol) (12/17/16 04:01) Salicylates (Aspirin) (12/17/16 04:01) Tylenol (Acetaminophen) (12/17/16 04:01) Tetanus/Diphtheria Tox Adult (Tetanus/Di (12/17/16 04:15) Potassium Chloride (Kcl) (12/17/16 06:15) Labs Laboratory Tests Test 12/17/16 12/17/16 04:05 04:19 White Blood Count 7.8 TH/MM3 Red Blood Count 4.89 MIL/MM3 Hemoglobin 10.4 GM/DL Hematocrit 33.4 % Mean Corpuscular Volume 68.4 FL Mean Corpuscular Hemoglobin 21.4 PG Mean Corpuscular Hemoglobin 31.2 % Concent Red Cell Distribution Width 32.0 % Platelet Count 315 TH/MM3 Mean Platelet Volume 9.1 FL Neutrophils (%) (Auto) 45.5 % Lymphocytes (%) (Auto) 41.4 % Monocytes (%) (Auto) 10.3 % Eosinophils (%) (Auto) 1.8 % Basophils (%) (Auto) 1.0 % Neutrophils # (Auto) 3.5 TH/MM3 Lymphocytes # (Auto) 3.2 TH/MM3 Monocytes # (Auto) 0.8 TH/MM3 Eosinophils # (Auto) 0.1 TH/MM3 Basophils # (Auto) 0.1 TH/MM3 CBC Comment AUTO DIFF Differential Comment AUTO DIFF CONFIRMED Target Cells 1+ Ovalocytes 1+ Sodium Level 147 MEQ/L Potassium Level 3.3 MEQ/L Chloride Level 116 MEQ/L Carbon Dioxide Level 24.5 MEQ/L Anion Gap 7 MEQ/L Blood Urea Nitrogen 12 MG/DL Creatinine 0.56 MG/DL Estimat Glomerular Filtration 113 ML/MIN Rate Random Glucose 91 MG/DL Calcium Level 8.2 MG/DL Total Bilirubin 0.1 MG/DL Aspartate Amino Transf 25 U/L (AST/SGOT) Alanine Aminotransferase 21 U/L (ALT/SGPT) Alkaline Phosphatase 81 U/L Total Protein 7.2 GM/DL Albumin 3.5 GM/DL Salicylates Level 5.7 MG/DL Acetaminophen Level LESS THAN 2.0 MCG/ML Ethyl Alcohol Level 156 MG/DL Urine Opiates Screen NEG Urine Barbiturates Screen NEG Urine Amphetamines Screen NEG Urine Benzodiazepines Screen POS Urine Cocaine Screen POS Urine Cannabinoids Screen NEG MDM Medical Decision Making Medical Screen Exam Complete: Yes Emergency Medical Condition: Yes Medical Record Reviewed: Yes Interpretation(s) Laboratory Tests Test 12/17/16 12/17/16 04:05 04:19 White Blood Count 7.8 TH/MM3 Red Blood Count 4.89 MIL/MM3 Hemoglobin 10.4 GM/DL Hematocrit 33.4 % Mean Corpuscular Volume 68.4 FL Mean Corpuscular Hemoglobin 21.4 PG Mean Corpuscular Hemoglobin 31.2 % Concent Red Cell Distribution Width 32.0 % Platelet Count 315 TH/MM3 Mean Platelet Volume 9.1 FL Neutrophils (%) (Auto) 45.5 % Lymphocytes (%) (Auto) 41.4 % Monocytes (%) (Auto) 10.3 % Eosinophils (%) (Auto) 1.8 % Basophils (%) (Auto) 1.0 % Neutrophils # (Auto) 3.5 TH/MM3 Lymphocytes # (Auto) 3.2 TH/MM3 Monocytes # (Auto) 0.8 TH/MM3 Eosinophils # (Auto) 0.1 TH/MM3 Basophils # (Auto) 0.1 TH/MM3 CBC Comment AUTO DIFF Differential Comment AUTO DIFF CONFIRMED Target Cells 1+ Ovalocytes 1+ Sodium Level 147 MEQ/L Potassium Level 3.3 MEQ/L Chloride Level 116 MEQ/L Carbon Dioxide Level 24.5 MEQ/L Anion Gap 7 MEQ/L Blood Urea Nitrogen 12 MG/DL Creatinine 0.56 MG/DL Estimat Glomerular Filtration 113 ML/MIN Rate Random Glucose 91 MG/DL Calcium Level 8.2 MG/DL Total Bilirubin 0.1 MG/DL Aspartate Amino Transf 25 U/L (AST/SGOT) Alanine Aminotransferase 21 U/L (ALT/SGPT) Alkaline Phosphatase 81 U/L Total Protein 7.2 GM/DL Albumin 3.5 GM/DL Salicylates Level 5.7 MG/DL Acetaminophen Level LESS THAN 2.0 MCG/ML Ethyl Alcohol Level 156 MG/DL Urine Opiates Screen NEG Urine Barbiturates Screen NEG Urine Amphetamines Screen NEG Urine Benzodiazepines Screen POS Urine Cocaine Screen POS Urine Cannabinoids Screen NEG Differential Diagnosis MDM: High Differential diagnoses: Schizophrenia, schizoaffective disorder, bipolar, anxiety, depression, adjustment reaction, mood disorder NOS, ODD, depressive disorder NOS, dementia, dementia with agitation, psychosis NOS, substance induced mood disorder, intermittent explosive disorder, Asperger syndrome, infection,electrolyte abnormality, malingering. Narrative Course Mental health screening discussed with the patient. Psychiatric screen ordered. Patient's given 40 mEq of potassium by mouth. This is substance induced mood disorder Diagnosis Primary Impression: Drug-induced mood disorder Condition: Stable Miah Melissa Dec 17, 2016 04:07
[2016-12-17] MEDS ORDERED: TETANUS/DIPHTHERIA TOXOID ADULT 0.5 ML VIAL IM ONE (04:15)
[2016-12-17 04:32] LABS: AUTOMATED NEUTROPHIL # 3.5 TH/MM3 (1.8-7.7); BASOPHIL # 0.1 TH/MM3 (0-0.2); EOSINOPHIL # 0.1 TH/MM3 (0-0.4); EOSINOPHIL % 1.8 % (0.0-4.0); HEMATOCRIT 33.4 % (35.0-46.0); LYMPH % 41.4 % (9.0-44.0); LYMPHOCYTE # 3.2 TH/MM3 (1.0-4.8); MEAN CELL VOLUME 68.4 FL (80.0-100.0); MEAN CORPUSCULAR HEMOGLOBIN 21.4 PG (27.0-34.0); MEAN CORPUSCULAR HGB CONC 31.2 % (32.0-36.0); MONO % 10.3 % (0.0-8.0); NEUT % 45.5 % (16.0-70.0); PLATELET COUNT 315 TH/MM3 (150-450); RED BLOOD COUNT 4.89 MIL/MM3 (4.00-5.30); WHITE BLOOD COUNT 7.8 TH/MM3 (4.0-11.0)
[2016-12-17 04:38] LABS: AMPHETAMINE, URINE NEG (NEG); BARBITURATES, URINE NEG (NEG); COCAINE, URINE POS (NEG)
[2016-12-17 04:54] LABS: OVALOCYTES 1+ (NORMAL); SCAN/DIFF AUTO DIFF CONFIRMED; TARGET CELLS 1+ (NORMAL)
[2016-12-17 04:58] LABS: HEMO FLAGS AUTO DIFF
[2016-12-17 05:01] LABS: ANION GAP 7 MEQ/L (5-15); AST (GOT) 25 U/L (15-37); BICARBONATE 24.5 MEQ/L (21.0-32.0); BLOOD UREA NITROGEN 12 MG/DL (7-18); CHLORIDE 116 MEQ/L (98-107); GLOMERULAR FILTRATION RATE 113 ML/MIN (>89); POTASSIUM 3.3 MEQ/L (3.5-5.1); SODIUM (NA) 147 MEQ/L (136-145)
[2016-12-17 05:07] LABS: ACETAMINOPHEN LESS THAN 2.0 MCG/ML (10.0-30.0); ALKALINE PHOSPHATASE 81 U/L (45-117); ALT (GPT) 21 U/L (10-53); TOTAL BILIRUBIN ADULT 0.1 MG/DL (0.2-1.0)
[2016-12-17] MEDS ORDERED: POTASSIUM CHLORIDE 20 MEQ CONTROLLED RELEASE TAB PO ONE (06:15)
--- NOTE | 2016-12-17 09:20 | MB ---
cc: JV LARA DATE OF CONSULTATION 12/17/2016 PHYSICIAN REQUESTING CONSULTATION Emergency department. REASON FOR CONSULTATION Bennett Act. HISTORY OF PRESENT ILLNESS Ms. Engle is a 56-year-old female with a reported history of anxiety and depression as well as alcohol usage issues who presents under a Bennett Act by law enforcement alleging that she superficially cut her left wrist. Of note, the patient was intoxicated on presentation here and her alcohol level was 156. Her urine toxicology was also positive for benzodiazepines and cocaine. Reviewing the electronic medical record, I see that the patient was seen most recently in consultation by Dr. Beltran for verbalizing homicidal ideation while intoxicated. He lifted the Benntet Act at that time. The patient is seen and examined, chart reviewed, case discussed with nurse in the [facility]. On my examination today, the patient is clinically sober. She says that she was somewhat upset because her brother with whom she lives had been trying to expose himself to her. She also alleges that hid her Xanax. She says that she had been drinking and in the context of these stressors she cut herself superficially with a piece of glass. She denies any genuine suicidal intent at the time and denies any suicidal ideation, intent or plan to me now. She says that she wants to live for her children and grandchildren. She denies any homicidal ideation. She does admit to some ongoing issues with anxiety, chiefly panicky in nature, but otherwise verbalizes no psychiatric symptomatology. I can elicit no depressive or hypomanic/manic symptoms. She denies any audiovisual hallucinations. I can elicit no delusional beliefs. The remainder of the psychiatric ROS is negative. The patient is requesting discharge from the emergency room this morning. PAST PSYCHIATRIC HISTORY The patient reports a history of anxiety and depression. She reports that she follows psychiatrically with Dr. Ramsey who reportedly prescribes her Adderall and Xanax. She denies any history of psychiatric admissions or suicide attempts. FAMILY HISTORY The patient denies a family history of serious mental illness or suicide. She does report that her brother is a drinker. CHEMICAL DEPENDENCY HISTORY The patient tends to minimize her alcohol use although this is extensively documented in the electronic medical record. She insists that if she had her Adderall she would not drink. She admits to occasional use of cocaine. SOCIAL HISTORY The patient denies any history of physical, verbal or sexual abuse. She lives with her son, girlfriend and her brother. She was 13 years ago. In addition to her son, she has a daughter age 21 and a daughter age 10, who lives with her father. She has a ninth grade education. She does not work. She has no income and is currently appealing a disability claim. She denies any or legal history. Denies any access to guns or firearms. Denies any holiness or spiritual beliefs. PAST MEDICAL HISTORY See electronic medical record. REVIEW OF SYSTEMS No reported headache, vision or hearing changes, chest pain, shortness of breath, bowel or bladder issues. No other physical complaints. PHYSICAL EXAMINATION VITAL SIGNS: Temperature is 98.7, pulse of 84, respirations 16, blood pressure 94/51, pulse oximetry 98% on room air. A physical examination was completed in the emergency room by the ER staff and the patient was medically cleared. On my examination today, the patient appears to be well-nourished and well-developed and in no acute physical distress. I do note several superficial scratches on her left wrist. No other evident signs of trauma. No motoric abnormalities noted. No signs of withdrawal noted. LABORATORIES REVIEWED CBC is significant for a microcytic anemia with a hemoglobin of 10.4. CMP is significant for mild hypokalemia with a potassium of 3.3. Sodium is 147. Toxicology alcohol level was 156 and urine toxicology is positive for benzodiazepines and cocaine. MENTAL STATUS EXAM The patient is in hospital gown. She is fairly well-groomed and certainly maintaining basic hygiene. She is awake and alert and oriented x 3. No evidence of delirium. No motor abnormalities noted. Speech is within normal limits for rate, tone and volume. Language and fund of knowledge seem average. Mood is reportedly somewhat anxious and affect is blunted. Thought process linear. No loosening of associations. No evident delusions. Denies audiovisual hallucinations. Denies suicidal or homicidal ideation, intent or plan. Insight and judgment are fair at best. ASSESSMENT AND PLAN 1. Adjustment disorder with disturbance of emotions and conduct, F43.25. 2. Alcohol dependence with intoxication, intoxication now resolved, F10.220. This is a 56-year-old female with psychiatric history as detailed above who presents under a Bennett Act after superficially scratching herself. On my examination today, the patient is clinically sober and denies any suicidal or homicidal ideation. Besides some possible situational anxiety. I can elicit no symptoms consistent with an unstable mood, anxiety or psychotic disorder in this patient at this time. She appears to be attending to her basic needs. She is future oriented. Putting all of this information together and weighing the acute, chronic, and protective factors, I healthcare advisory services manager to a reasonable degree of medical certainty that the patient is at low imminent risk of harm to self or others from a mental illness as defined under the Bennett Act and her level of function is adequate for outpatient care. Consequently, the patient does not meet Bennett Act criteria and I have lifted the Bennett Act. I have recommended that the patient follow up with her outpatient psychiatrist. I have recommended that the patient pursue a chemical dependency evaluation and treatment if indicated. I have counseled the patient regarding warning signs for need to return to the psychiatric emergency room as part of a general safety plan. The patient is otherwise psychiatrically cleared for discharge from the ED. Thank you very much for this consultation. Jv Lara DC/HAILEE /8:19 AM /8:36 AM DALE
== END 2016-12-17 09:41 | disposition home or self-care (01) ==
LOC: NEPD 03:49
DX: S61.512A Laceration without foreign body of left wrist, initial encounter (principal); F43.25 Adjustment disorder with mixed disturbance of emotions and conduct; F10.229 Alcohol dependence with intoxication, unspecified; F13.94 Sedative, hypnotic or anxiolytic use, unspecified with sedative, hypnotic or anxiolytic-induced mood disorder; F14.14 Cocaine abuse with cocaine-induced mood disorder; J44.9 Chronic obstructive pulmonary disease, unspecified; B19.20 Unspecified viral hepatitis C without hepatic coma; M79.7 Fibromyalgia; G89.29 Other chronic pain; F17.210 Nicotine dependence, cigarettes, uncomplicated
CPT/HCPCS: 80053; 80307; 85025; 99284

== ENCOUNTER 2017-03-25 20:27 | Inpatient (IN) | payer SELFPAY ==
[~2017-03-25] VITALS: Ht 165.1 cm; Wt 65.9 kg
[~2017-03-25 20:27] MED LIST changes: +PANT20 PO
[2017-03-25 20:36] VITALS: BP 104/67; PULSE 94; RESP 18; TEMP 98.4; O2SAT 97
[2017-03-25 20:42] VITALS: RESP 18; O2SAT 98
[2017-03-25] MEDS: SODIUM CHLOR 0.9% 1000 ML INJ 1,000 ML IV SCH (20:44)
--- NOTE | 2017-03-25 20:47 | PD ---
HPI Chief Complaint: OD/ Ingestion Time Seen by Provider: 20:39 Travel History International Travel<30 days: No Contact w/Intl Traveler<30days: No Traveled to known affect area: No History of Present Illness HPI 56-year-old female complains of scratchy throat. Patient states that she drank a couple cups of pain thinner yesterday. Patient states that it was not a suicidal attempt. Patient states that she has scratchy throat since then. Patient denies any headache. Patient denies any chest pain or shortness of breath. Patient states that she has history of chronic recurrent abdominal pain and is not new. Patient denies any nausea vomiting diarrhea. Patient denies any fever chills. Patient denies any dysuria or frequency. Patient states that she drank some alcohol today also. Patient states that she is on Adderall and Xanax daily. Patient states that she was on Suboxone the past but not recently. Patient states that she smoked marijuana occasionally. Patient came by EMS. Patient was given IV fluid and Zofran IV on the way to ED. 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 PFSH Past Medical History Blood Disorders: No Bipolar Disorder: Yes Anxiety: Yes Depression: Yes Cardiovascular Problems: No COPD: Yes Diabetes: No Diminished Hearing: No Endocrine: No Fibromyalgia: Yes GERD: Yes Genitourinary: No Hepatitis: Yes ( Hep C) Immune Disorder: No Musculoskeletal: Yes (Chronic low back pain) Neurologic: Yes ("Nerve problems" back and neck ) Psychiatric: Yes Reproductive: No Respiratory: Yes (COPD) Immunizations Current: Yes Ulcer: Yes ?: Not Menopausal: Yes : 5 Para: 3 Miscarriage: 2 Dilation and Curettage (D&C): Yes Past Surgical History Oral Surgery: Yes (Teeth) Tonsillectomy: Yes Other Surgery: Yes (Tonsillectomy) Social History Alcohol Use: Yes (ALCOHOL ON BOARD TODAY) Tobacco Use: Yes (1 PPD) Substance Use: Yes (CRACK, COCAINE, marijuana) Allergies-Medications (Allergen,Severity, Reaction): Coded Allergies: No Known Allergies (Unverified , 11/28/16) Reported Meds & Prescriptions Reported Meds & Active Scripts Active Reported Adderall (Amphetamine-Dextroamphetamine) 20 Mg Tab 20 Mg PO BID Avoid late evening doses. Space doses at least 4 to 6 hours if more than once/day dosing. Xanax (Alprazolam) 2 Mg Tab 2 Mg PO BID Review of Systems General / Constitutional: No: Fever Eyes: No: Visual changes HENT: No: Headaches Cardiovascular: No: Chest Pain or Discomfort Respiratory: No: Shortness of Breath Gastrointestinal: No: Abdominal Pain Genitourinary: No: Dysuria Musculoskeletal: No: Pain Skin: No Rash Neurologic: No: Weakness Psychiatric: No: Depression Endocrine: No: Polydipsia Hematologic/Lymphatic: No: Easy Bruising Physical Exam Narrative GENERAL: Well-nourished, well-developed patient. SKIN: Focused skin assessment warm/dry. HEAD: Normocephalic. EYES: No scleral icterus. No injection or drainage. NECK: Supple, trachea midline. No JVD or lymphadenopathy. CARDIOVASCULAR: Regular rate and rhythm without murmurs, gallops, or rubs. RESPIRATORY: Breath sounds equal bilaterally. No accessory muscle use. GASTROINTESTINAL: Abdomen soft, nondistended. Patient has mild tenderness on palpation epigastric area. No rebound tenderness. No mass. MUSCULOSKELETAL: No cyanosis, or edema. BACK: Nontender without obvious deformity. No CVA tenderness. Neurologic exam: Patient awake and alert oriented 3. No obvious focal neurological deficit. Data Data Last Documented VS Vital Signs Date Time Temp Pulse Resp B/P Pulse Ox O2 Delivery O2 Flow Rate FiO2 03/25/17 20:42 18 98 Room Air 03/25/17 20:36 98.4 94 104/67 Orders Electrocardiogram (03/25/17 20:39) Complete Blood Count With Diff (03/25/17 20:39) Comprehensive Metabolic Panel (03/25/17 20:39) Creatine Kinase (Cpk) (03/25/17 20:39) Troponin I (03/25/17 20:39) Prothrombin Time / Inr (Pt) (03/25/17 20:39) Act Partial Throm Time (Ptt) (03/25/17 20:39) Lipase (03/25/17 20:39) Magnesium (Mg) (03/25/17 20:39) Thyroid Stimulating Hormone (03/25/17 20:39) Phosphorus (Po4) (03/25/17 20:39) Chest, Single Ap (03/25/17 20:39) Iv Access Insert/Monitor (03/25/17 20:39) Ecg Monitoring (7/31/17 20:39) Oximetry (03/25/17 20:39) Drug Screen, Random Urine (03/25/17 20:39) Alcohol (Ethanol) (03/25/17 20:39) Salicylates (Aspirin) (03/25/17 20:39) Tylenol (Acetaminophen) (03/25/17 20:39) Sodium Chlor 0.9% 1000 Ml Inj (Ns 1000 M (03/25/17 20:45) Osmolality,Serum (03/25/17 21:00) Calcium Gluconate Inj (Calcium Gluconate (03/25/17 22:00) Potassium Chloride (Kcl) (03/25/17 22:00) Potassium Chlor 20 Meq Premix (Kcl 20 Me (03/25/17 22:00) Restraints Non-Violent GREGORY.Q3H (03/25/17 22:00) Labs Laboratory Tests Test 03/25/17 20:45 White Blood Count 6.7 TH/MM3 Red Blood Count 4.13 MIL/MM3 Hemoglobin 10.7 GM/DL Hematocrit 33.3 % Mean Corpuscular Volume 80.8 FL Mean Corpuscular Hemoglobin 25.9 PG Mean Corpuscular Hemoglobin 32.1 % Concent Red Cell Distribution Width 21.7 % Platelet Count 287 TH/MM3 Mean Platelet Volume 7.8 FL Neutrophils (%) (Auto) 55.8 % Lymphocytes (%) (Auto) 33.8 % Monocytes (%) (Auto) 8.5 % Eosinophils (%) (Auto) 1.1 % Basophils (%) (Auto) 0.8 % Neutrophils # (Auto) 3.7 TH/MM3 Lymphocytes # (Auto) 2.3 TH/MM3 Monocytes # (Auto) 0.6 TH/MM3 Eosinophils # (Auto) 0.1 TH/MM3 Basophils # (Auto) 0.1 TH/MM3 CBC Comment DIFF FINAL Differential Comment Prothrombin Time 10.1 SEC Prothromb Time International 0.9 RATIO Ratio Activated Partial 27.6 SEC Thromboplast Time Sodium Level 148 MEQ/L Potassium Level 2.9 MEQ/L Chloride Level 119 MEQ/L Carbon Dioxide Level 16.5 MEQ/L Anion Gap 13 MEQ/L Blood Urea Nitrogen 10 MG/DL Creatinine 0.63 MG/DL Estimat Glomerular Filtration 98 ML/MIN Rate Random Glucose 90 MG/DL Serum Osmolality 341 MOSM/KG Calcium Level 6.0 MG/DL Protein Corrected Calcium 6.7 MG/DL Phosphorus Level 2.1 MG/DL Magnesium Level 1.7 MG/DL Total Bilirubin 0.3 MG/DL Aspartate Amino Transf 14 U/L (AST/SGOT) Alanine Aminotransferase 14 U/L (ALT/SGPT) Alkaline Phosphatase 99 U/L Total Creatine Kinase 51 U/L Troponin I LESS THAN 0.02 NG/ML Total Protein 5.5 GM/DL Albumin 2.7 GM/DL Lipase 115 U/L Thyroid Stimulating Hormone 0.321 uIU/ML 3rd Gen Salicylates Level 2.1 MG/DL Acetaminophen Level 2.1 MCG/ML Ethyl Alcohol Level 188 MG/DL MDM Medical Decision Making Medical Screen Exam Complete: Yes Emergency Medical Condition: Yes Interpretation(s) Last Impressions Chest X-Ray 03/25/172038 Signed Impressions: Service Date/Time: Saturday, March 25, 2017 20:39 - CONCLUSION: The lungs are clear. Uli Christy MD 22:07 PM. CBC WBC 6.7. Hemoglobin 10.7 hematocrit 33.3. Normal differential. Potassium 2.9. Chloride 119. Bicarbonate 16.5. Serum osmole 341. Protein corrected calcium 6.7. Cardiac enzymes are normal. TSH 0.321. Salicylate 2.1. Acetaminophen 2.1. Alcohol 188. Differential Diagnosis Differential diagnosis including substance abuse, depression, suicidal, electrolyte imbalance. Narrative Course 56-year-old female was brought in by EMS after she ingested pain thinner yesterday. Patient states that he was not a suicidal attempt. Normal saline solution 1 25 cc an hour. 21:05 PM. Spoke with poison control. Advised supportive care. Normal saline solution 1 L IV bolus. KCl 20 mEq IV given. KCl 40 mEq by mouth given. Calcium gluconate 1 g IV given. Diagnosis Primary Impression: Ingestion of substance Qualified Code: T65.92XA - Ingestion of substance, intentional self-harm, initial encounter Additional Impressions: Alcohol abuse Metabolic acidosis Hypokalemia Hypocalcemia Admitting Information Admitting Physician Requests: Admit Shahzad Ferrell MD Mar 25, 2017 20:47
--- NOTE | 2017-03-25 21:04 | RADRPT ---
EXAM DATE/TIME: 03/25/2017 20:39 [facility] COMPARISON: CHEST SINGLE AP, May 03, 2016, 10:07. INDICATIONS : Short of breath MEDICAL HISTORY : Cardiovascular disease. hx. rt rib fractures SURGICAL HISTORY : None. ENCOUNTER: Initial ACUITY: 1 day PAIN SCORE: 0/10 LOCATION: chest FINDINGS: A single view of the chest demonstrates the lungs to be symmetrically aerated without evidence of mas s, infiltrate or effusion. No evidence of pneumothorax. The cardiomediastinal contours are unremark able. Stable healed fracture of the posterolateral 8th rib. CONCLUSION: The lungs are clear. Uli Christy MD on March 25, 2017 at 21:02 Board Certified Radiologist. This report was verified electronically.
[2017-03-25 21:07] LABS: AUTOMATED NEUTROPHIL # 3.7 TH/MM3 (1.8-7.7); BASOPHIL # 0.1 TH/MM3 (0-0.2); BASOPHIL % 0.8 % (0.0-2.0); EOSINOPHIL # 0.1 TH/MM3 (0-0.4); EOSINOPHIL % 1.1 % (0.0-4.0); HEMATOCRIT 33.3 % (35.0-46.0); HEMO FLAGS DIFF FINAL; LYMPH % 33.8 % (9.0-44.0); LYMPHOCYTE # 2.3 TH/MM3 (1.0-4.8); MEAN CELL VOLUME 80.8 FL (80.0-100.0); MEAN CORPUSCULAR HEMOGLOBIN 25.9 PG (27.0-34.0); MEAN CORPUSCULAR HGB CONC 32.1 % (32.0-36.0); MONO % 8.5 % (0.0-8.0); NEUT % 55.8 % (16.0-70.0); PLATELET COUNT 287 TH/MM3 (150-450); RED BLOOD COUNT 4.13 MIL/MM3 (4.00-5.30); RED CELL DISTRIBUTION WIDTH 21.7 % (11.6-17.2); WHITE BLOOD COUNT 6.7 TH/MM3 (4.0-11.0)
[2017-03-25 21:22] LABS: APTT (PATIENT) 27.6 SEC (24.3-30.1); INTERNATIONAL NORMALIZED RATIO 0.9 RATIO; PROTHROMBIN TIME - PATIENT 10.1 SEC (9.8-11.6)
[2017-03-25 21:35] LABS: ACETAMINOPHEN 2.1 MCG/ML (10.0-30.0); ALKALINE PHOSPHATASE 99 U/L (45-117); ALT (GPT) 14 U/L (10-53); ANION GAP 13 MEQ/L (5-15); AST (GOT) 14 U/L (15-37); BICARBONATE 16.5 MEQ/L (21.0-32.0); BLOOD UREA NITROGEN 10 MG/DL (7-18); CHLORIDE 119 MEQ/L (98-107); GLOMERULAR FILTRATION RATE 98 ML/MIN (>89); MAGNESIUM 1.7 MG/DL (1.5-2.5); SODIUM (NA) 148 MEQ/L (136-145); TOTAL BILIRUBIN ADULT 0.3 MG/DL (0.2-1.0)
[2017-03-25 21:36] LABS: CREATINE KINASE 51 U/L (26-192)
[2017-03-25 21:38] LABS: CALCIUM-PROTEIN CORRECTED 6.7 MG/DL (8.5-10.1); POTASSIUM 2.9 MEQ/L (3.5-5.1)
[2017-03-25] MEDS ORDERED: POTASSIUM CHLORIDE 20 MEQ CONTROLLED RELEASE TAB PO ONE ×2 (22:00→22:30)
[2017-03-25] MEDS ORDERED: CALCIUM GLUCONATE INJ 1 GM in DEXTROSE 5% IN WATER 100ML INJ 100 ML IV ONE ×2 (22:00)
[2017-03-25] MEDS ORDERED: POTASSIUM CHLOR 20 MEQ PREMIX 100 ML IV ONE ×2 (22:00→22:30)
[2017-03-25 22:10] LABS: AMPHETAMINE, URINE NEG (NEG); BARBITURATES, URINE NEG (NEG); COCAINE, URINE NEG (NEG)
[2017-03-25] MEDS ORDERED: CALCIUM GLUCONATE 10% 1 GM/10 ML VIAL IV PUSH ONE (22:30)
[2017-03-25] MEDS ORDERED: SODIUM CHLORIDE 0.9% FLUSH 10 ML FLUSH IV FLUSH PRN (22:30)
[2017-03-25] MEDS ORDERED: NALOXONE HCL 0.4 MG/ML AMP IV PRN (22:30)
[2017-03-25] MEDS ORDERED: CALCIUM GLUCONATE INJ 1 GM in SODIUM CHLORIDE 0.9% INJ 100 ML IV ONE (23:00)
--- NOTE | 2017-03-25 23:09 | HHI.HP ---
HPI Service [facility] Primary Care Physician Unknown Admission Diagnosis substance ingestion. Electrolyte abnormality. Metabolic acidosis. Diagnoses: Chief Complaint: paint thiner ingestion Travel History International Travel<30 Days: No Contact w/Intl Traveler <30 Da: No Traveled to Known Affected Are: No History of Present Illness Written by CAROLIN Robertson acting as scribe for [Megan] on 03/25/17 at 22: 58. 56 y/o female with a history of depression, neuropathy and GERD was brought to the ED by family. Patient states she was in Longterm for 4 months released 1 week ago, she was started on Prozac (unknown dose) and Celexa 10mg HS while in long-term , but she is currently out of it. She states she was self medicating at home with alcohol and paint thinner yesterday, she states she put the paint thinner in her beer so she wouldn't drink it. She told her family what she did and they brought her in. Denies any chest pain, sob, fever, chills, black stools, dysuria or headaches. She states she does not abuse alcohol daily and only drinks when she is depressed. She was brought in by police under a bennett act for suicidal ideations. Review of Systems Except as stated in HPI: all other systems reviewed are Neg Past Family Social History Past Medical History ETOH abuse depression neuropathy GERD Past Surgical History Appendectomy Multiple D&Cs Reported Medications per patient: prozac celexa protonix singulair one more med that pt told us that is not recorded Allergies: Coded Allergies: No Known Allergies (Unverified , 11/28/16) Active Ordered Medications Current Medications Medications (Trade) Dose Ordered Sig/Mike Route Start Time Stop Time Status Last Admin Sodium Chloride 1,000 ml @ 125 mls/hr Q8H IV 03/25/17 20:45 03/25/17 20:44 Calcium Gluconate 1 gm/Dextrose 110 ml @ 110 mls/hr ONCE ONCE IV 03/25/17 22:00 03/25/17 22:59 (KCl 20 Meq Premix Inj) 100 ml @ 50 mls/hr BOLUS ONCE IV 03/25/17 22:00 03/25/17 23:59 03/25/17 22:31 (NS Flush) 2 ml UNSCH PRN IV FLUSH 03/25/17 22:30 (NS Flush) 2 ml BID IV FLUSH 03/26/17 09:00 Naloxone HCl 0.4 mg 0.4 mg UNSCH PRN IV 03/25/17 22:30 Potassium Chloride 100 ml @ 50 mls/hr BOLUS ONCE IV 03/25/17 22:30 03/26/17 00:29 (Calcium Gluconate Inj/NS Inj) 110 ml @ 110 mls/hr ONCE ONCE IV 03/25/17 23:00 03/25/17 23:59 Family History Mom: COPD, heart disease Brother: ETOH abuse Social History Tobacco use: 1 PPD Alcohol use: only when depressed Illicit drug use: 80s cocaine and heroin Physical Exam Vital Signs Vital Signs Date Time Temp Pulse Resp B/P Pulse Ox O2 Delivery O2 Flow Rate FiO2 03/25/17 20:42 18 98 Room Air 03/25/17 20:36 98.4 94 18 104/67 97 Physical Exam GENERAL: This is a well-nourished, well-developed patient, in no apparent distress. SKIN: Left eye ecchymotic. HEAD: Atraumatic. Normocephalic. EYES: Pupils equal round and reactive. Extraocular motions intact. ENT: Nose without bleeding, purulent drainage or septal hematoma. Airway patent. NECK: Trachea midline. No JVD or lymphadenopathy. CARDIOVASCULAR: Regular rate and rhythm without murmurs, gallops, or rubs. RESPIRATORY: Clear to auscultation. Breath sounds equal bilaterally. No wheezes , rales, or rhonchi. GASTROINTESTINAL: Abdomen soft, non-tender, nondistended. No hepato-splenomegaly , or palpable masses. No guarding. MUSCULOSKELETAL: Extremities without clubbing, cyanosis, or edema. No joint tenderness, effusion, or edema noted. No calf tenderness. NEUROLOGICAL: Awake and alert. Motor and sensory grossly within normal limits. Normal speech. Laboratory Laboratory Tests Test 03/25/17 03/25/17 20:45 21:30 White Blood Count 6.7 Red Blood Count 4.13 Hemoglobin 10.7 Hematocrit 33.3 Mean Corpuscular Volume 80.8 Mean Corpuscular Hemoglobin 25.9 Mean Corpuscular Hemoglobin 32.1 Concent Red Cell Distribution Width 21.7 Platelet Count 287 Mean Platelet Volume 7.8 Neutrophils (%) (Auto) 55.8 Lymphocytes (%) (Auto) 33.8 Monocytes (%) (Auto) 8.5 Eosinophils (%) (Auto) 1.1 Basophils (%) (Auto) 0.8 Neutrophils # (Auto) 3.7 Lymphocytes # (Auto) 2.3 Monocytes # (Auto) 0.6 Eosinophils # (Auto) 0.1 Basophils # (Auto) 0.1 CBC Comment DIFF FINAL Differential Comment Prothrombin Time 10.1 Prothromb Time International 0.9 Ratio Activated Partial 27.6 Thromboplast Time Sodium Level 148 Potassium Level 2.9 Chloride Level 119 Carbon Dioxide Level 16.5 Anion Gap 13 Blood Urea Nitrogen 10 Creatinine 0.63 Estimat Glomerular Filtration 98 Rate Random Glucose 90 Serum Osmolality 341 Calcium Level 6.0 Protein Corrected Calcium 6.7 Phosphorus Level 2.1 Magnesium Level 1.7 Total Bilirubin 0.3 Aspartate Amino Transf 14 (AST/SGOT) Alanine Aminotransferase 14 (ALT/SGPT) Alkaline Phosphatase 99 Total Creatine Kinase 51 Troponin I LESS THAN 0.02 Total Protein 5.5 Albumin 2.7 Lipase 115 Thyroid Stimulating Hormone 0.321 3rd Gen Salicylates Level 2.1 Acetaminophen Level 2.1 Ethyl Alcohol Level 188 Urine Opiates Screen NEG Urine Barbiturates Screen NEG Urine Amphetamines Screen NEG Urine Benzodiazepines Screen NEG Urine Cocaine Screen NEG Urine Cannabinoids Screen NEG Result Diagram: 03/25/[id number]/25/[id number] Imaging Last Impressions Chest X-Ray 03/25/172038 Signed Impressions: Service Date/Time: Saturday, March 25, 2017 20:39 - CONCLUSION: The lungs are clear. Uli Christy MD Assessment and Plan Problem List: (1) Suicidal ideation ICD Code: R45.851 Status: Acute (2) Hypokalemia ICD Code: E87.6 Status: Acute (3) Hypocalcemia ICD Code: E83.51 Status: Acute (4) Ingestion of substance ICD Code: T65.91XA Status: Acute (5) Hyperthyroidism ICD Code: E05.90 Status: Acute Assessment and Plan 56 y/o female with a history of depression, neuropathy and GERD was brought to the ED by family after ingesting paint thinner with alcohol yesterday. Suicidal ideation, currently under Bennett act, patient with a history of depression, not on any medications, self medicated with alcohol and paint thinner Patient states she was on Prozac and Celexa up until one week ago -Consult psychiatry for recommendations -Sitter at bedside Hypokalemia, and hypocalcemia potassium 2.9, protein corrected calcium 6.7 -Replacement ordered -Labs in a.m., trend, replace as needed Elevated TSH, suspect subclinical -T4, T3 ordered DVT prophylaxis: SCDs This note was transcribed by [email or web address] [Debbie Ramírez]. I, Dr. Minerva Guzman personally performed the history, physical exam, and medical decision making; and confirmed the accuracy of the information in the transcribed note. Authenticated by Dr. Minerva Guzman on 03/25/17 at 22:58. Discussed Condition With Patient, RN and ED physician Physician Certification 2 Midnight Certification Type: Admission for Inpatient Services Order for Inpatient Services The services are ordered in accordance with Medicare regulations or non- Medicare payer requirements, as applicable. In the case of services not specified as inpatient-only, they are appropriately provided as inpatient services in accordance with the 2-midnight benchmark. Estimated LOS (days): 2 days is the estimated time the patient will need to remain in the hospital, assuming treatment plan goals are met and no additional complications. Post-Hospital Plan: Not yet determined Problem Qualifiers (1) Ingestion of substance: Qualified Code: T65.92XA - Ingestion of substance, intentional self-harm, initial encounter Debbie Ramírez Mar 25, 2017 23:09 Minerva Guzman MD Mar 26, 2017 02:39
[2017-03-26] VITALS (7 sets, daily range): BP systolic 94–110; BP diastolic 55–66; PULSE 75–92; RESP 15–20; TEMP 97.2–98.1; O2SAT 93–96
[2017-03-26 01:02] LABS: FREE T3 2.47 PG/ML (2.18-3.98); FREE T4 1.07 NG/DL (0.76-1.46)
[2017-03-26] MEDS: SODIUM CHLOR 0.9% 1000 ML INJ 1,000 ML IV SCH (01:56)
[2017-03-26] MEDS ORDERED: ONDANSETRON HCL 4 MG/2 ML VIAL IV PUSH PRN (02:45)
[2017-03-26] MEDS ORDERED: PANTOPRAZOLE SOD 40 MG DELAYED RELEASE TAB PO ONE (03:00)
[2017-03-26 04:39] LABS: AUTOMATED NEUTROPHIL # 3.7 TH/MM3 (1.8-7.7); BASOPHIL # 0.1 TH/MM3 (0-0.2); BASOPHIL % 0.9 % (0.0-2.0); EOSINOPHIL # 0.1 TH/MM3 (0-0.4); EOSINOPHIL % 1.8 % (0.0-4.0); HEMATOCRIT 34.3 % (35.0-46.0); HEMO FLAGS DIFF FINAL; LYMPH % 32.9 % (9.0-44.0); LYMPHOCYTE # 2.2 TH/MM3 (1.0-4.8); MEAN CELL VOLUME 80.4 FL (80.0-100.0); MEAN CORPUSCULAR HEMOGLOBIN 26.1 PG (27.0-34.0); MEAN CORPUSCULAR HGB CONC 32.5 % (32.0-36.0); NEUT % 56.4 % (16.0-70.0); PLATELET COUNT 277 TH/MM3 (150-450); RED BLOOD COUNT 4.26 MIL/MM3 (4.00-5.30); RED CELL DISTRIBUTION WIDTH 21.6 % (11.6-17.2); WHITE BLOOD COUNT 6.5 TH/MM3 (4.0-11.0)
[2017-03-26 05:30] LABS: BICARBONATE 19.5 MEQ/L (21.0-32.0); POTASSIUM 3.9 MEQ/L (3.5-5.1)
[2017-03-26] MEDS ORDERED: POTASSIUM CHLORIDE 20 MEQ CONTROLLED RELEASE TAB PO ONE (06:45)
[2017-03-26] MEDS ORDERED: SODIUM CHLORIDE 0.9% FLUSH 10 ML FLUSH IV FLUSH SCH (09:00)
[2017-03-26] MEDS ORDERED: PANTOPRAZOLE SOD 40 MG DELAYED RELEASE TAB PO SCH (09:00)
--- NOTE | 2017-03-26 13:27 | PD.PSY.CON ---
Provisional Diagnosis Admission Date Mar 25, 2017 at 22:28 [place] I. Major depressive disorder, recurrent, without psychosis, cannabis and alcohol use disorder, history of anxiety [place] II. Borderline personality disorder [place] III. Arthritis [place] IV. Multiple ER visits under [place] act [place] V. 45 History of Present Illness Service Psychiatry Consult Requested By Reason for Consult Suicidal attempt Primary Care Physician Unknown HPI The patient is a 56 year-old white woman, domiciled with her son in [place] , , unemployed, supported by [employer], with psychiatric history of Depression, alcohol and cannabis use disorder, multiple Er visits under bennett act, well known by service, multiple SAs and self cutting behavior behavior without SI, recently released form longterm after 90 days incarceration due to physical assault , medical history of neuropathy and GERD was brought to the ED by family under [employer] act due to suicidal ideation. She was started on Prozac (unknown dose) and Celexa 10mg HS while in longterm, but she is currently out of it. She states she was self medicating at home with alcohol and paint thinner yesterday, she states she put the paint thinner in her beer so she wouldn't drink it. She told her family what she did and they brought her in. On psychiatric evaluation today patient is poorly cooperative, oppositional and resistant, requesting to be discharged. Patient says that she drank Thinner yesterday to , but she is not suicidal anymore. She says that she had an argument with her family and became depressed over but today feeling much better. She is unable to elaborate about the circumstances of argument with family and suicidal attempt. She says that she has been depressed because she has been running out of her Prozac and Celexa "for this reason the has been drinking alcohol and using marijuana everyday to treatment depression". She reports frequent mood swings, suicidal thoughts, depressed mood, increased alcohol intake, decreased appetite , insomnia, generalized pessimism. Patient is oriented 3, no attention deficit , no delirium, no gross cognitive impairment present. Patient reports daily use of alcohol and marijuana, she refused to quantify. She denies history of withdrawal, detox and rehabilitation. Review of Systems Endocrine: DENIES: Abnorml menstrual pattern, Heat/cold intolerance, Polydipsia , Polyuria, Polyphagia Eyes: DENIES: Blurred vision, Diplopia, Eye inflammation, Eye pain, Vision loss , Photosensitivity, Double Vision Ears, nose, mouth, throat: DENIES: Tinnitus, Hearing loss, Vertigo, Nasal discharge, Oral lesions, Throat pain, Hoarseness, Ear Pain, Running Nose, Epistaxis, Sinus Pain, Toothache, Odynophagia Respiratory: DENIES: Apneas, Cough, Snoring, Wheezing, Hemoptysis, Sputum production, Shortness of breath Cardiovascular: DENIES: Chest pain, Palpitations, Syncope, Dyspnea on Exertion , PND, Lower Extremity Edema, Orthopnea, Claudication Gastrointestinal: DENIES: Abdominal pain, Black stools, Bloody stools, Constipation, Diarrhea, Nausea, Vomiting, Difficulty Swallowing, Anorexia Musculoskeletal: DENIES: Joint pain, Muscle aches, Stiffness, Joint Swelling, Back pain, Neck pain Integumentary: DENIES: Abnormal pigmentation, Pruritus, Rash, Nail changes, Breast masses, Breast skin changes, Nipple discharge Hematologic/lymphatic: DENIES: Bruising, Lymphadenopathy Immunologic/allergic: DENIES: Eczema, Urticaria Neurologic: DENIES: Abnormal gait, Headache, Localized weakness, Paresthesias, Seizures, Speech Problems, Tremor, Poor Balance Psychiatric: COMPLAINS OF: Suicidal Ideation Past Family Social History Coded Allergies: No Known Allergies (Unverified , 11/28/16) Reported Medications Amphetamine-Dextroamphetamine (Adderall)20 Mg Tab20 Mg PO BID #60 TAB Ref 0 Avoid late evening doses. Space doses at least 4 to 6 hours if more than once/day dosing. 11/28/16 Alprazolam (Xanax)2 Mg Tab2 Mg PO BID Ref 0 11/28/16 Discontinued Reported Medications Pantoprazole (Protonix)20 Mg Tab20 Mg PO DAILY #30 TAB Ref 0 12/17/16 Discontinued Scripts Ibuprofen 800 Mg Kan478 Mg PO TID #21 TAB Prov:Adama Coker MD 11/19/16 Current Medications Medications (Trade) Dose Ordered Sig/Mike Route Start Time Stop Time Status Last Admin (NS 1000 ml Inj) 1,000 ml @ 125 mls/hr Q8H IV 03/25/17 20:45 03/25/17 20:44 (NS Flush) 2 ml UNSCH PRN IV FLUSH 03/25/17 22:30 (NS Flush) 2 ml BID IV FLUSH 03/26/17 09:00 (Narcan Inj) 0.4 mg UNSCH PRN IV 03/25/17 22:30 (Zofran Inj) 4 mg Q6H PRN IV PUSH 03/26/17 02:45 03/26/17 03:02 (Protonix) 40 mg DAILY PO 03/26/17 09:00 03/26/17 09:06 Family History Patient denies family psychiatric history Social History Patient was born and raised in [facility], she lives in [place] with her son, she is , unemployed, supported by [employer], her highest level of education is ninth grade Patient's Strengths (min. 2) Verbal communication, family support Physical Exam On physical exam, no withdrawal, no EPS, no tremors, no psychomotor agitation or retardation, no pupillary changes, Vital Signs Vital Signs Date Time Temp Pulse Resp B/P Pulse Ox O2 Delivery O2 Flow Rate FiO2 03/26/17 12:00 97.2 77 20 108/57 96 03/26/17 00:00 Room Air Lab Results Laboratory Tests Test 03/25/17 03/25/17 20:45 21:30 White Blood Count 6.7 Red Blood Count 4.13 Hemoglobin 10.7 Hematocrit 33.3 Mean Corpuscular Volume 80.8 Mean Corpuscular Hemoglobin 25.9 Mean Corpuscular Hemoglobin 32.1 Concent Red Cell Distribution Width 21.7 Platelet Count 287 Mean Platelet Volume 7.8 Neutrophils (%) (Auto) 55.8 Lymphocytes (%) (Auto) 33.8 Monocytes (%) (Auto) 8.5 Eosinophils (%) (Auto) 1.1 Basophils (%) (Auto) 0.8 Neutrophils # (Auto) 3.7 Lymphocytes # (Auto) 2.3 Monocytes # (Auto) 0.6 Eosinophils # (Auto) 0.1 Basophils # (Auto) 0.1 CBC Comment DIFF FINAL Differential Comment Prothrombin Time 10.1 Prothromb Time International 0.9 Ratio Activated Partial 27.6 Thromboplast Time Sodium Level 148 Potassium Level 2.9 Chloride Level 119 Carbon Dioxide Level 16.5 Anion Gap 13 Blood Urea Nitrogen 10 Creatinine 0.63 Estimat Glomerular Filtration 98 Rate Random Glucose 90 Serum Osmolality 341 Calcium Level 6.0 Protein Corrected Calcium 6.7 Phosphorus Level 2.1 Magnesium Level 1.7 Total Bilirubin 0.3 Aspartate Amino Transf 14 (AST/SGOT) Alanine Aminotransferase 14 (ALT/SGPT) Alkaline Phosphatase 99 Total Creatine Kinase 51 Troponin I LESS THAN 0.02 Total Protein 5.5 Albumin 2.7 Lipase 115 Thyroid Stimulating Hormone 0.321 3rd Gen Salicylates Level 2.1 Acetaminophen Level 2.1 Ethyl Alcohol Level 188 Urine Opiates Screen NEG Urine Barbiturates Screen NEG Urine Amphetamines Screen NEG Urine Benzodiazepines Screen NEG Urine Cocaine Screen NEG Urine Cannabinoids Screen NEG Result Diagram: 03/25/[id number]/[id number] Mental Status Examination Appearance woman, age appearing, poor hygiene, disheveled, superficially cooperative, oppositional and irritable Speech: Unremarkable Orientation: x3 Memory: Unremarkable Thought Process: Logical, Goal Directed Thought Content: Unremarkable Language Fluent and spontaneous Fund of Knowledge Good grammar, acknowledge the date, who is the jai alai player Hallucination Type: None Attention and Concentration: Good Suicidal Ideation: Yes Previous Suicide Attempts: Yes Homicidal Ideation: No Previous Homicide Attempts: No Insight: Good Judgment: Poor Affect: Sad Affect if Inappropriate: Flat Mood: Angry Motor Activity: Normal gait Assessment & Plan Problem List: (1) Depression Assessment & Plan: 56-year-old white woman, well known by this service due to her multiple ER visits under Bennett act due to suicidal ideation in the context of alcohol intoxication, with psychiatric history of depression, alcohol and cannabis use disorder, no previous psychiatric hospitalizations, previous suicidal attempts, history of self cutting behavior with no SI, no established outpatient care, recently released from longterm after 90 days incarceration, who presents on evaluation with depressive symptoms consisting on mood swings, hopelessness, helplessness, generalized pessimism, increased alcohol and marijuana use, insomnia, suicidal thoughts. Patient has attempted to commit suicide yesterday by overdosing with Thinner. At this moment the patient represents an increase danger to self and needs psychiatric hospitalization for stabilization. Would restart Celexa 10 mg for depressive symptoms. CIWA protocol. Extensive support, motivation and psychoeducation provided. Transfer to psychiatry once medically clear. ICD Code: F32.9 Assessment & Plan Estimated LOS: days Problem Qualifiers (1) Depression: Moses Beltran MD Mar 26, 2017 13:27
--- NOTE | 2017-03-26 14:01 | EKG ---
Date Performed: 03/25/2017 Time Performed: 20:47:47 PTAGE: 56 years EKG: Sinus rhythm Since previous tracing, no significant change noted NORMAL ECG PREVIOUS TRACING : 07/22/2016 00.58 DOCTOR: Kishan Grimaldo Interpretating Date/Time 03/26/2017 13:59:48
[2017-03-26] MEDS ORDERED: MAG-LIQ PO (15:30)
[2017-03-26] MEDS ORDERED: ONDA4INJ2 IV PUSH (15:30)
[2017-03-26] MEDS ORDERED: SUCR1S PO (15:30)
[2017-03-26] MEDS ORDERED: ALUMINUM/MAGNESIUM/SIMETH 30 ML CUP PO PRN (15:30)
[2017-03-26] MEDS ORDERED: PANT40TA3 PO (15:30)
--- NOTE | 2017-03-26 15:32 | HHI.DCPOC ---
Discharge Care Plan Diagnosis: (1) Depression (2) Ingestion of substance (3) Suicidal ideation (4) Hypocalcemia (5) Hypokalemia (6) Metabolic acidosis (7) Alcohol abuse (8) Drug-induced mood disorder (9) Euthyroid sick syndrome Goals to Promote Your Health * To prevent worsening of your condition and complications * To maintain your health at the optimal level Directions to Meet Your Goals Take your medications as prescribed Follow your dietary instruction Follow activity as directed Keep your appointments as scheduled Take your immunizations and boosters as scheduled If your symptoms worsen call your PCP, if no PCP go to Urgent Care Center or Emergency Room Smoking is Dangerous to Your Health. Avoid second hand smoke Call the 24-hour hour crisis hotline for domestic abuse at Ottoniel Russo MD Mar 26, 2017 15:31
--- NOTE | 2017-03-26 15:36 | HHI.DS ---
Discharge Summary Admission Date Mar 25, 2017 at 22:28 Discharge Date: Mar 26, 2017 Admitting Diagnosis substance ingestion. Electrolyte abnormality. Metabolic acidosis. (1) Suicidal ideation ICD Code: R45.851 Diagnosis: [place] (2) Hypokalemia ICD Code: E87.6 Diagnosis: [place] (3) Hypocalcemia ICD Code: E83.51 Diagnosis: [place] (4) Ingestion of substance ICD Code: T65.91XA Diagnosis: [place] (5) Hyperthyroidism ICD Code: E05.90 Diagnosis: [place] Procedures none Brief History - From Admission Written by CAROLIN Robertson acting as scribe for [Megan] on 03/25/17 at 22: 58. 56 y/o female with a history of depression, neuropathy and GERD was brought to the ED by family. Patient states she was in [facility] for 4 months released 1 week ago, she was started on Prozac (unknown dose) and Celexa 10mg HS while in detention , but she is currently out of it. She states she was self medicating at home with alcohol and paint thinner yesterday, she states she put the paint thinner in her beer so she wouldn't drink it. She told her family what she did and they brought her in. Denies any chest pain, sob, fever, chills, black stools, dysuria or headaches. She states she does not abuse alcohol daily and only drinks when she is depressed. She was brought in by police under a arias act for suicidal ideations. CBC/BMP: 03/26/17 0421 03/26/17 0421 Significant Findings Laboratory Tests Test 03/25/17 03/26/17 20:45 04:21 Hemoglobin 10.7 GM/DL 11.1 GM/DL (11.6-15.3) (11.6-15.3) Hematocrit 33.3 % 34.3 % (35.0-46.0) (35.0-46.0) Mean Corpuscular Hemoglobin 25.9 PG 26.1 PG (27.0-34.0) (27.0-34.0) Red Cell Distribution Width 21.7 % 21.6 % (11.6-17.2) (11.6-17.2) Monocytes (%) (Auto) 8.5 % (0.0-8.0) Sodium Level 148 MEQ/L (136-145) Potassium Level 2.9 MEQ/L (3.5-5.1) Chloride Level 119 MEQ/L 112 MEQ/L (98-107) (98-107) Carbon Dioxide Level 16.5 MEQ/L 19.5 MEQ/L (21.0-32.0) (21.0-32.0) Serum Osmolality 341 MOSM/KG (275-295) Calcium Level 6.0 MG/DL 8.0 MG/DL (8.5-10.1) (8.5-10.1) Protein Corrected Calcium 6.7 MG/DL (8.5-10.1) Phosphorus Level 2.1 MG/DL (2.5-4.9) Aspartate Amino Transf 14 U/L (15-37) (AST/SGOT) Troponin I LESS THAN 0.02 NG/ML (0.02-0.05) Total Protein 5.5 GM/DL (6.4-8.2) Albumin 2.7 GM/DL (3.4-5.0) Thyroid Stimulating Hormone 0.321 uIU/ML 3rd Gen (0.358-3.740) Salicylates Level 2.1 MG/DL (2.8-20.0) Acetaminophen Level 2.1 MCG/ML (10.0-30.0) Ethyl Alcohol Level 188 MG/DL (0-5) Pt update on day of discharge Patient complains of some epigastric abdominal pain. States has had a bowel movement, also states she is a little bit nauseous but denies vomiting. Vital signs are stable and the patient tolerated diet. Pt Condition on Discharge: Stable Discharge Disposition: Disc to Psych Care Fac Discharge Time: <= 30 minutes Discharge Instructions DIET: Follow Instructions for: As Tolerated, No Restrictions Activities you can perform: Regular-No Restrictions Follow up Referrals: PCP Follow-up - 2 Weeks New Medications: [id number]-[id number]-[id number] Liq (Mag-Al Plus Liq) 200-200-20 Mg/5 Ml Susp 30 ML PO Q6H PRN HEARTBURN #1 ML Ondansetron Inj (Ondansetron Inj) 4 Mg/2 Ml Inj 4 MG IV PUSH Q6H PRN NAUSEA #6 INJECTION Pantoprazole (Pantoprazole) 40 Mg Tab 40 MG PO DAILY Heartburn Management #30 TAB Sucralfate Liq (Sucralfate Liq) 1 Gm/10 Ml Ca 1 GM PO ACHS Heartburn Management #1 BOTTLE Discontinued Medications: Alprazolam (Xanax) 2 Mg Tab 2 MG PO BID ANXIETY Ref 0 TAB Amphetamine-Dextroamphetamine (Adderall) 20 Mg Tab 20 MG PO BID Avoid late evening doses. Space doses at least 4 to 6 hours if more than once/day dosing. Hyperactivity Control #60 Ref 0 TAB Ottoniel Russo MD Mar 26, 2017 15:36
[2017-03-26] MEDS ORDERED: CELE10TA PO (15:39)
[2017-03-26] MEDS ORDERED: SUCRALFATE 1 GM/10 ML CUP PO SCH (16:00)
[2017-03-26] MEDS ORDERED: ALUMINUM/MAGNESIUM/SIMETH 30 ML CUP PO ONE (16:15)
[2017-03-26] MEDS ORDERED: CITALOPRAM HYDROBROMIDE 20 MG TAB PO SCH (16:15)
== END 2017-03-26 17:39 | DRG 918 ==
LOC: NEPE 20:27 → NEDA 22:28 → N06B 03-26 01:35
PROVIDERS: ADMIT Hospitalist; ATTEND Hospitalist
DX: T52.8X2A Toxic effect of other organic solvents, intentional self-harm, initial encounter (principal); E87.2 Acidosis; R45.851 Suicidal ideations; E83.51 Hypocalcemia; E05.90 Thyrotoxicosis, unspecified without thyrotoxic crisis or storm; E07.81 Sick-euthyroid syndrome; E87.6 Hypokalemia; F10.10 Alcohol abuse, uncomplicated; F11.90 Opioid use, unspecified, uncomplicated; F12.90 Cannabis use, unspecified, uncomplicated; F19.94 Other psychoactive substance use, unspecified with psychoactive substance-induced mood disorder; F31.9 Bipolar disorder, unspecified; J44.9 Chronic obstructive pulmonary disease, unspecified; K21.9 Gastro-esophageal reflux disease without esophagitis; M79.7 Fibromyalgia; F17.200 Nicotine dependence, unspecified, uncomplicated
CPT/HCPCS: 71010; 80048; 80053; 80307; 82550; 83690; 83735; 83930; 84100; 84439; 84443; 84481; 84484; 85025; 85610; 85730; 93005; J0610; J2405; J3480; J7030

== ENCOUNTER 2017-03-26 17:00 | Inpatient (IN) | payer SELFPAY ==
[~2017-03-26 17:00] MED LIST changes: +CELE10TA PO; -IBUP800T23 PO; +MAG-LIQ PO; +ONDA4INJ2 IV PUSH; -PANT20 PO; +PANT40TA3 PO; +SUCR1S PO
[2017-03-26] MEDS ORDERED: LORazepam 2 MG/ML VIAL IM PRN (18:15)
[2017-03-26] MEDS ORDERED: ACETAMINOPHEN 325 MG TAB PO PRN (18:15)
[2017-03-26] MEDS ORDERED: ALUMINUM/MAGNESIUM/SIMETH 30 ML CUP PO PRN (18:15)
[2017-03-26] MEDS ORDERED: MAGNESIUM HYDROXIDE SUSP 30 ML CUP PO PRN (18:15)
[2017-03-26] MEDS: REMOVE OLD NICOTINE PATCH T-DERMAL SCH (21:00)
[2017-03-26] MEDS: LORazepam 1 MG TAB PO PRN (21:10)
[2017-03-27 05:33] VITALS: BP 108/56; PULSE 77; RESP 18; TEMP 97.9; O2SAT 96
[2017-03-27] MEDS: NICOTINE 21 MG/24 HR PATCH T-DERMAL SCH (08:56)
[2017-03-27] MEDS: LORazepam 1 MG TAB PO PRN ×3 (09:29→21:23)
[2017-03-27 11:18] LABS: ANION GAP 8 MEQ/L (5-15); BICARBONATE 28.3 MEQ/L (21.0-32.0); BLOOD UREA NITROGEN 13 MG/DL (7-18); CHLORIDE 105 MEQ/L (98-107); GLOMERULAR FILTRATION RATE 90 ML/MIN (>89); HDL CHOLESTEROL 110.8 MG/DL (40.0-60.0); LDL CHOLESTEROL 94 MG/DL (0-99); POTASSIUM 4.1 MEQ/L (3.5-5.1); SODIUM (NA) 141 MEQ/L (136-145)
[2017-03-27 11:20] LABS: HEMOGLOBIN A1b 1.6 %; HEMOGLOBIN Ao 85.4 %; HEMOGLOBIN LA1C 2.1 %; HEMOGLOBIN P3 3.8 %
[2017-03-27] MEDS ORDERED: ALUMINUM/MAGNESIUM/SIMETH 30 ML CUP PO PRN ×2 (14:15)
[2017-03-27] MEDS ORDERED: ACETAMINOPHEN 325 MG TAB PO PRN (14:15)
[2017-03-27] MEDS ORDERED: LORazepam 0.5 MG TAB PO PRN (14:15)
[2017-03-27] MEDS ORDERED: MAGNESIUM HYDROXIDE SUSP 30 ML CUP PO PRN (14:15)
[2017-03-27] MEDS ORDERED: diphenhydrAMINE HCL 50 MG CAP PO PRN (14:15)
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
[2017-03-27] MEDS: CITALOPRAM HYDROBROMIDE 20 MG TAB PO SCH (15:38)
[2017-03-27] MEDS: SUCRALFATE 1 GM/10 ML CUP PO SCH ×2 (15:38→20:49)
[2017-03-27] MEDS: PANTOPRAZOLE SOD 40 MG DELAYED RELEASE TAB PO SCH (15:39)
[2017-03-27 17:59] VITALS: BP 113/69; PULSE 83; RESP 18; TEMP 98.7; O2SAT 99
[2017-03-27] MEDS: REMOVE OLD NICOTINE PATCH T-DERMAL SCH (21:24)
[2017-03-28 05:00] VITALS: BP 106/71; PULSE 64; RESP 16; TEMP 98.1; O2SAT 97
[2017-03-28] MEDS: NICOTINE 21 MG/24 HR PATCH T-DERMAL SCH (08:20)
[2017-03-28] MEDS: SUCRALFATE 1 GM/10 ML CUP PO SCH ×2 (08:20→11:06)
[2017-03-28] MEDS: CITALOPRAM HYDROBROMIDE 20 MG TAB PO SCH (08:20)
[2017-03-28] MEDS: PANTOPRAZOLE SOD 40 MG DELAYED RELEASE TAB PO SCH (08:20)
[2017-03-28] MEDS: LORazepam 1 MG TAB PO PRN (09:04)
[2017-03-28] MEDS ORDERED: SUCR1S PO (11:41)
[2017-03-28] MEDS ORDERED: PANT40TA3 PO (11:41)
[2017-03-28] MEDS ORDERED: CELE10TA PO (11:41)
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
== END 2017-03-28 13:54 | disposition home or self-care (01) | DRG 882 ==
LOC: H260 17:00
PROVIDERS: ADMIT Psychiatry & Neurology Psychiatry; ATTEND Psychiatry & Neurology Psychiatry
DX: F43.25 Adjustment disorder with mixed disturbance of emotions and conduct (principal); R45.851 Suicidal ideations; F14.10 Cocaine abuse, uncomplicated; F10.129 Alcohol abuse with intoxication, unspecified; T65.91XA Toxic effect of unspecified substance, accidental (unintentional), initial encounter; Y92.9 Unspecified place or not applicable; F12.10 Cannabis abuse, uncomplicated; Z79.899 Other long term (current) drug therapy
CPT/HCPCS: 80048; 80061; 83036; Q0163

== ENCOUNTER 2017-04-19 20:14 | Emergency (ER) | payer OTHER ==
[~2017-04-19] VITALS: Ht 165.1 cm; Wt 70.0 kg
[~2017-04-19 20:14] MED LIST changes: -ADDE20 PO; -XANA2TAB2 PO
[2017-04-19 20:23] VITALS: BP 113/78; PULSE 99; RESP 16; TEMP 98.4; O2SAT 98
[2017-04-19 21:22] LABS: AUTOMATED NEUTROPHIL # 12.8 TH/MM3 (1.8-7.7); BASOPHIL # 0.1 TH/MM3 (0-0.2); BASOPHIL % 0.8 % (0.0-2.0); EOSINOPHIL # 0.1 TH/MM3 (0-0.4); EOSINOPHIL % 0.4 % (0.0-4.0); HEMO FLAGS DIFF FINAL; LYMPH % 18.5 % (9.0-44.0); LYMPHOCYTE # 3.2 TH/MM3 (1.0-4.8); MEAN CELL VOLUME 85.4 FL (80.0-100.0); MEAN CORPUSCULAR HGB CONC 31.6 % (32.0-36.0); MONO % 5.3 % (0.0-8.0); PLATELET COUNT 329 TH/MM3 (150-450); RED BLOOD COUNT 5.39 MIL/MM3 (4.00-5.30); RED CELL DISTRIBUTION WIDTH 18.4 % (11.6-17.2)
[2017-04-19] MEDS ORDERED: TETANUS/DIPHTHERIA TOXOID ADULT 0.5 ML VIAL IM ONE (21:30)
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
[2017-04-19 21:33] LABS: ANION GAP 9 MEQ/L (5-15); AST (GOT) 20 U/L (15-37); BICARBONATE 22.3 MEQ/L (21.0-32.0); BLOOD UREA NITROGEN 7 MG/DL (7-18); CHLORIDE 109 MEQ/L (98-107); GLOMERULAR FILTRATION RATE 69 ML/MIN (>89); SODIUM (NA) 140 MEQ/L (136-145)
[2017-04-19 21:34] LABS: BLOOD, URINE SMALL (NEG); COMMENT (UR) CULT NOT INDICATED; CULTURE IF INDICATED CULT NOT INDICATED; GLUCOSE,URINE NEG (NEG); HYALINE CAST, URINE 6 /lpf (RARE); KETONE, URINE NEG (NEG); NITRITE,URINE NEG (NEG); SQUAMOUS EPITHELIAL CELL URINE 1 /hpf (0-5); URINE COLOR YELLOW (YELLW/STRAW)
[2017-04-19 21:37] LABS: ALKALINE PHOSPHATASE 146 U/L (45-117); ALT (GPT) 20 U/L (10-53); TOTAL BILIRUBIN ADULT 0.2 MG/DL (0.2-1.0)
[2017-04-19 21:43] LABS: ALCOHOL 189 MG/DL (0-5)
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
[2017-04-20 07:10] VITALS: BP 122/78; PULSE 89; RESP 17; TEMP 97.8; O2SAT 99
[2017-04-20 11:00] VITALS: BP 110/77; PULSE 70; RESP 16; TEMP 98; O2SAT 98
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
[2017-04-20 15:00] VITALS: BP 120/76; TEMP 98
== END 2017-04-20 15:00 | disposition home or self-care (01) ==
LOC: NEPD 20:14
DX: F43.25 Adjustment disorder with mixed disturbance of emotions and conduct (principal); F10.10 Alcohol abuse, uncomplicated; F14.10 Cocaine abuse, uncomplicated; M79.89 Other specified soft tissue disorders; F31.9 Bipolar disorder, unspecified; F41.9 Anxiety disorder, unspecified; J44.9 Chronic obstructive pulmonary disease, unspecified; M79.7 Fibromyalgia; Z23 Encounter for immunization
CPT/HCPCS: 29125; 73130; 80053; 80307; 81001; 85025; 90471; 90714

== ENCOUNTER 2017-06-21 17:19 | Emergency (ER) | payer SELFPAY ==
[~2017-06-21] VITALS: Ht 165.1 cm; Wt 66.5 kg
[~2017-06-21 17:19] MED LIST changes: -ONDA4INJ2 IV PUSH; -SUCR1S PO
[2017-06-21 17:31] VITALS: BP 125/77; PULSE 92; RESP 14; TEMP 99; O2SAT 97
[2017-06-21] MEDS ORDERED: IBUPROFEN 600 MG TAB PO ONE (18:45)
--- NOTE | 2017-06-21 19:14 | PD ---
HPI . Left foot pain Chief Complaint: Musculoskeletal Complaint Time Seen by Provider: 18:30 Travel History International Travel<30 days: No Contact w/Intl Traveler<30days: No Traveled to known affect area: No History of Present Illness HPI 56-year-old female presents to emergency for evaluation of left foot pain that started on Saturday when she kicked the door in her house. Patient initially kicked the door and thought that maybe she had just bruised her foot but the pain is persistent despite her taking Aleve and elevating her left foot. The left foot is neurovascularly intact. There is some edema and ecchymosis noted to the lateral aspect of the foot extending upward towards the ankle. There is ankle tenderness to palpation. The patient has been ambulatory on her foot since this happened. Patient has no major medical history and doesn't take any daily medication, she has no known allergies. PFSH Past Medical History Arthritis: Yes Asthma: No Autoimmune Disease: No Blood Disorders: No Bipolar Disorder: Yes Anxiety: Yes Depression: Yes Heart Rhythm Problems: No Cancer: No Cardiovascular Problems: No High Cholesterol: No Chemotherapy: No Chest Pain: No Congestive Heart Failure: No COPD: Yes Cerebrovascular Accident: No Diabetes: No Diminished Hearing: No Endocrine: No Fibromyalgia: Yes GERD: No Genitourinary: No Hepatitis: Yes ( Hep C) Hiatal Hernia: No Immune Disorder: No Kidney Stones: No Musculoskeletal: Yes Neurologic: No Psychiatric: Yes Reproductive: No Respiratory: No Immunizations Current: Yes Migraines: No Radiation Therapy: No Renal Failure: No Seizures: No Sickle Cell Disease: No Sleep Apnea: No Thyroid Disease: No Ulcer: No ?: Not LMP: 2011 Menopausal: Yes : 5 Para: 3 Miscarriage: 2 Dilation and Curettage (D&C): Yes Past Surgical History Abdominal Surgery: No AICD: No Arteriovenous Shunt: No Cardiac Surgery: No Ear Surgery: No Endocrine Surgery: No Eye Surgery: No Genitourinary Surgery: No Gynecologic Surgery: No Insulin Pump: No Joint Replacement: No Oral Surgery: No Pacemaker: No Thoracic Surgery: No Tonsillectomy: Yes Other Surgery: Yes (Tonsillectomy) Social History Alcohol Use: No Tobacco Use: Yes (1 PPD) Substance Use: No (denies at present) Allergies-Medications (Allergen,Severity, Reaction): Coded Allergies: No Known Allergies (Unverified , 06/21/17) Reported Meds & Prescriptions Reported Meds & Active Scripts Active No Active Prescriptions or Reported Medications Review of Systems Except as stated in HPI: all other systems reviewed are Neg Physical Exam Narrative GENERAL: Well-nourished, well-developed 56-year-old female patient in no acute distress. Nontoxic appearing. SKIN: Focused skin assessment warm/dry. HEAD: Normocephalic. Atraumatic. EYES: No scleral icterus. No injection or drainage. NECK: Supple, trachea midline. No JVD or lymphadenopathy. CARDIOVASCULAR: Regular rate and rhythm without murmurs, gallops, or rubs. Pedal pulses +2 bilaterally. RESPIRATORY: Breath sounds equal bilaterally. No accessory muscle use. GASTROINTESTINAL: Abdomen soft, non-tender, nondistended. MUSCULOSKELETAL: Mild left foot edema and ecchymosis noted to the lateral aspect extending upward towards the lateral malleolus. BACK: Nontender without obvious deformity. No CVA tenderness. Data Data Last Documented VS Vital Signs Date Time Temp Pulse Resp B/P (MAP) Pulse Ox O2 Delivery O2 Flow Rate FiO2 06/21/17 17:31 99.0 92 14 125/77 (93) 97 Orders Orders Ankle, Complete ([id number]) (06/21/17 18:32) Foot, Complete ([id number]) (06/21/17 18:32) Ice/Cold Pack (06/21/17 18:32) Ibuprofen (Motrin) (06/21/17 18:45) MDM Medical Decision Making Medical Screen Exam Complete: Yes Emergency Medical Condition: Yes Differential Diagnosis Differential diagnoses include but not limited to left foot fracture, left foot sprain, left foot contusion, left ankle sprain, left ankle contusion, left ankle fracture Narrative Course 86-year-old female presents to emergency room for evaluation of left foot pain that she sustained when she kicked the door in her house last Saturday. There is mild ecchymosis and edema noted to the lateral aspect extending upward towards the lateral malleolus. The left foot is neurovascularly intact. The patient has been ambulatory on her left foot since this occurred. Patient denies any fevers, chills, malaise, chest pain, shortness breath. X-ray of the left foot ordered and pending. Ice pack applied to the left foot. Ibuprofen ordered for pain and swelling. X-ray of the left foot and ankle were negative for any acute finding. Emile wrap will be applied to the left foot and patient will be discharged home with instructions to follow-up with her primary care. Last Impressions Foot X-Ray 06/21/171831 Signed Impressions: Service Date/Time: Wednesday, June 21, 2017 18:54 - CONCLUSION: Normal examination for a patient of this age. Miah Ortiz MD Ankle X-Ray 06/21/171831 Signed Impressions: Service Date/Time: Wednesday, June 21, 2017 18:54 - CONCLUSION: Normal examination for a patient of this age. Miah Ortiz MD Diagnosis Primary Impression: Foot contusion Qualified Codes: S90.32XA - Contusion of left foot, initial encounter Referrals: Primary Care Physician Patient Instructions: Foot Contusion (ED), General Instructions Additional Instructions: Please return to emergency department if your symptoms return or worsen. Follow up with your primary care provider. Rice therapy to left foot, rest, ice, Emile wrap with activity and elevate when resting. Use [id number] ibuprofen as needed for pain or swelling. Scripts No Active Prescriptions or Reported Meds Disposition: 01 DISCHARGE HOME Condition: Stable Arely Manzanares CAROLIN Jun 21, 2017 19:14
--- NOTE | 2017-06-21 19:20 | RADRPT ---
EXAM DATE/TIME: 06/21/2017 18:54 [facility] COMPARISON: No previous studies available for comparison. INDICATIONS : Left ankle pain. No known injury. MEDICAL HISTORY : None. SURGICAL HISTORY : None. ENCOUNTER: Initial ACUITY: 2 days PAIN SCORE: 6/10 LOCATION: Left ankle FINDINGS: Three view exam was performed of the left ankle. The bony structures are in normal alignment. No ev idence of fracture, dislocation, or soft tissue swelling. The ankle mortise is intact. No radiopaqu e foreign bodies are seen. Bony mineralization is normal. CONCLUSION: Normal examination for a patient of this age. Miah Ortiz MD on June 21, 2017 at 19:18 Board Certified Radiologist. This report was verified electronically.
--- NOTE | 2017-06-21 19:21 | RADRPT ---
EXAM DATE/TIME: 06/21/2017 18:54 [facility] COMPARISON: No previous studies available for comparison. INDICATIONS : Left foot pain. No known injury. MEDICAL HISTORY : None. SURGICAL HISTORY : None. ENCOUNTER: Initial ACUITY: 2 days PAIN SCORE: 7/10 LOCATION: Left foot FINDINGS: Three view examination of the left foot demonstrates no soft tissue swelling, dislocation, or fractur e. The tarsal bones appear intact. The interphalangeal and metatarsophalangeal joints are intact. The calcaneus is intact. Bony mineralization is normal. CONCLUSION: Normal examination for a patient of this age. Miah Ortiz MD on June 21, 2017 at 19:18 Board Certified Radiologist. This report was verified electronically.
== END 2017-06-21 19:59 | disposition home or self-care (01) ==
LOC: PHED 17:19 → PHEFT 19:59
DX: S90.32XA Contusion of left foot, initial encounter (principal); F17.200 Nicotine dependence, unspecified, uncomplicated; Z87.39 Personal history of other diseases of the musculoskeletal system and connective tissue; Z86.59 Personal history of other mental and behavioral disorders; Z87.09 Personal history of other diseases of the respiratory system; Z86.19 Personal history of other infectious and parasitic diseases; W22.09XA Striking against other stationary object, initial encounter; Y92.009 Unspecified place in unspecified non-institutional (private) residence as the place of occurrence of the external cause
CPT/HCPCS: 73610; 73630; 99283

== ENCOUNTER 2017-10-10 19:43 | Emergency (ER) | payer OTHER ==
[~2017-10-10] VITALS: Ht 165.1 cm; Wt 60.0 kg
[2017-10-10 20:01] VITALS: BP 135/77; PULSE 99; RESP 16; TEMP 98.9; O2SAT 97
[2017-10-10 20:26] VITALS: BP 113/76; PULSE 102; RESP 22; TEMP 98.4; O2SAT 97
[2017-10-10 20:32] LABS: AUTOMATED NEUTROPHIL # 7.8 TH/MM3 (1.8-7.7); BASOPHIL # 0.1 TH/MM3 (0-0.2); BASOPHIL % 1.1 % (0.0-2.0); EOSINOPHIL # 0.1 TH/MM3 (0-0.4); EOSINOPHIL % 0.6 % (0.0-4.0); HEMOGLOBIN 15.2 GM/DL (11.6-15.3); LYMPH % 26.1 % (9.0-44.0); MEAN CELL VOLUME 79.4 FL (80.0-100.0); MEAN CORPUSCULAR HEMOGLOBIN 26.3 PG (27.0-34.0); MEAN CORPUSCULAR HGB CONC 33.1 % (32.0-36.0); MEAN PLATELET VOLUME 9.2 FL (7.0-11.0); MONO % 4.3 % (0.0-8.0); MONOCYTE # 0.5 TH/MM3 (0-0.9); NEUT % 67.9 % (16.0-70.0); PLATELET COUNT 310 TH/MM3 (150-450); RED CELL DISTRIBUTION WIDTH 15.5 % (11.6-17.2); WHITE BLOOD COUNT 11.5 TH/MM3 (4.0-11.0)
[2017-10-10] MEDS ORDERED: ACETAMINOPHEN 500 MG CPLT PO ONE (22:15)
--- NOTE | 2017-10-10 22:19 | PD ---
Data Data Last Documented VS Vital Signs Date Time Temp Pulse Resp B/P (MAP) Pulse Ox O2 Delivery O2 Flow Rate FiO2 10/10/17 22:28 10/10/17 20:26 98.4 102 22 97 Room Air Orders Orders Complete Blood Count With Diff (10/10/17 19:57) Drug Screen, Random Urine (10/10/17 19:57) Psych Screen (10/10/17 19:57) Acetaminophen (Tylenol) (10/10/17 22:15) Ed Discharge Order (10/10/17 22:16) Labs Laboratory Tests Test 10/10/17 20:15 10/10/17 21:05 White Blood Count 11.5 TH/MM3 Red Blood Count 5.80 MIL/MM3 Hemoglobin 15.2 GM/DL Hematocrit 46.0 % Mean Corpuscular Volume 79.4 FL Mean Corpuscular Hemoglobin 26.3 PG Mean Corpuscular Hemoglobin Concent 33.1 % Red Cell Distribution Width 15.5 % Platelet Count 310 TH/MM3 Mean Platelet Volume 9.2 FL Neutrophils (%) (Auto) 67.9 % Lymphocytes (%) (Auto) 26.1 % Monocytes (%) (Auto) 4.3 % Eosinophils (%) (Auto) 0.6 % Basophils (%) (Auto) 1.1 % Neutrophils # (Auto) 7.8 TH/MM3 Lymphocytes # (Auto) 3.0 TH/MM3 Monocytes # (Auto) 0.5 TH/MM3 Eosinophils # (Auto) 0.1 TH/MM3 Basophils # (Auto) 0.1 TH/MM3 CBC Comment DIFF FINAL Differential Comment Urine Opiates Screen NEG Urine Barbiturates Screen NEG Urine Amphetamines Screen NEG Urine Benzodiazepines Screen NEG Urine Cocaine Screen POS Urine Cannabinoids Screen NEG MDM Supervised Visit with ARLIN: Yes Narrative Course Patient seen and examined by me in addition to Patrick HERRERA. This is a 56- year-old female history of polysubstance called 911 today because she stated that she wanted to be seen for her leg pain. She made comments that she wanted to go to sleep tonight and was Bennett acted form. She is adamantly denying any suicidal homicidal ideation. She quite strange in her behavior and thinks that she is manic but certainly she is not gravely disabled at this time. She has been on extended release opiates in the past. I informed her that we would not be able to refill any medications like that here, she was offered Tylenol and is agreeable. She states she would like to go home so she can get some rest. After an extended conversation with her I do not believe that she is a threat to herself nor others. She is stable for discharge and I have lifted her Bennett act. Scripts No Active Prescriptions or Reported Meds Disposition: 01 DISCHARGE HOME Condition: Stable Lamonte Camarena MD Oct 10, 2017 22:19
--- NOTE | 2017-10-10 22:21 | PD ---
HPI Chief Complaint: Psychiatric Symptoms Time Seen by Provider: 21:23 Travel History International Travel<30 days: No Contact w/Intl Traveler<30days: No Traveled to known affect area: No History of Present Illness HPI 56-year-old white female presents emergency Department under Bennett act by . Patient had called PD requested them to Bennett act her to bring her to the hospital. Patient has multiple somatic complaints. She has a history of chronic pain and ran out of her Suboxone 5 days ago. She complains of pain in her legs, back and all over. She admits to history of substance abuse. She is still drinking alcohol and doing cocaine. The patient here states that she is not truly suicidal. She has no intention on hurting herself or hurting anyone. She states that she merely wanted to be out of pain. She started being in pain all the time. PFSH Past Medical History Arthritis: Yes Asthma: No Autoimmune Disease: No Blood Disorders: No Bipolar Disorder: Yes Anxiety: Yes Depression: Yes Heart Rhythm Problems: No Cancer: No Cardiovascular Problems: No High Cholesterol: No Chemotherapy: No Chest Pain: No Congestive Heart Failure: No COPD: Yes Cerebrovascular Accident: No Diabetes: No Diminished Hearing: No Endocrine: No Fibromyalgia: Yes GERD: No Genitourinary: No Hepatitis: Yes ( Hep C) Hiatal Hernia: No Immune Disorder: No Kidney Stones: No Musculoskeletal: Yes Neurologic: No Psychiatric: Yes Reproductive: No Respiratory: No Immunizations Current: Yes Migraines: No Radiation Therapy: No Renal Failure: No Seizures: No Sickle Cell Disease: No Sleep Apnea: No Thyroid Disease: No Ulcer: No Tetanus Vaccination: < 5 Years ?: Not Menopausal: Yes : 5 Para: 3 Miscarriage: 2 Dilation and Curettage (D&C): Yes Past Surgical History Abdominal Surgery: No AICD: No Arteriovenous Shunt: No Cardiac Surgery: No Ear Surgery: No Endocrine Surgery: No Eye Surgery: No Genitourinary Surgery: No Gynecologic Surgery: No Insulin Pump: No Joint Replacement: No Oral Surgery: No Pacemaker: No Thoracic Surgery: No Tonsillectomy: Yes Other Surgery: Yes (Tonsillectomy) Social History Alcohol Use: Yes Tobacco Use: Yes (1 PPD) Substance Use: Yes (cocaine, marijuana) Allergies-Medications (Allergen,Severity, Reaction): Coded Allergies: No Known Allergies (Unverified Allergy, Unknown, 10/10/17) Reported Meds & Prescriptions Reported Meds & Active Scripts Active No Active Prescriptions or Reported Medications Review of Systems Except as stated in HPI: all other systems reviewed are Neg Physical Exam Narrative GENERAL: Well-nourished, well-developed patient. SKIN: Warm and dry. The patient has a large area of ecchymosis to her right lower leg which is in the end stages of healing. Appears to be approximate 5 days old. There is mild swelling of the right leg but no Homans sign or calf tenderness. HEAD: Normocephalic and atraumatic. EYES: No scleral icterus. No injection or drainage. ENT: No nasal drainage noted. Mucous membranes pink. Airway patent. NECK: Supple, trachea midline. Moves head freely without obvious discomfort. CARDIOVASCULAR: Regular rate and rhythm without murmurs, gallops, or rubs. RESPIRATORY: Breath sounds equal bilaterally. No accessory muscle use. GASTROINTESTINAL: Abdomen soft, non-tender, nondistended. EXTREMITIES: No cyanosis or edema. BACK: Nontender without obvious deformity. No CVA tenderness. NEURO: Patient is alert and oriented. no sensorimotor deficits. Nonfocal. Normal speech. PSYCH: No delusions. No auditory or visual hallucinations. Data Data Last Documented VS Vital Signs Date Time Temp Pulse Resp B/P (MAP) Pulse Ox O2 Delivery O2 Flow Rate FiO2 10/10/17 20:26 98.4 102 22 113/76 (88) 97 Room Air Orders Orders Complete Blood Count With Diff (10/10/17 19:57) Comprehensive Metabolic Panel (10/10/17 19:57) Alcohol (Ethanol) (10/10/17 19:57) Salicylates (Aspirin) (10/10/17 19:57) Tylenol (Acetaminophen) (10/10/17 19:57) Drug Screen, Random Urine (10/10/17 19:57) Psych Screen (10/10/17 19:57) Acetaminophen (Tylenol) (10/10/17 22:15) Ed Discharge Order (10/10/17 22:16) Labs Laboratory Tests Test 10/10/17 20:15 10/10/17 21:05 White Blood Count 11.5 TH/MM3 Red Blood Count 5.80 MIL/MM3 Hemoglobin 15.2 GM/DL Hematocrit 46.0 % Mean Corpuscular Volume 79.4 FL Mean Corpuscular Hemoglobin 26.3 PG Mean Corpuscular Hemoglobin Concent 33.1 % Red Cell Distribution Width 15.5 % Platelet Count 310 TH/MM3 Mean Platelet Volume 9.2 FL Neutrophils (%) (Auto) 67.9 % Lymphocytes (%) (Auto) 26.1 % Monocytes (%) (Auto) 4.3 % Eosinophils (%) (Auto) 0.6 % Basophils (%) (Auto) 1.1 % Neutrophils # (Auto) 7.8 TH/MM3 Lymphocytes # (Auto) 3.0 TH/MM3 Monocytes # (Auto) 0.5 TH/MM3 Eosinophils # (Auto) 0.1 TH/MM3 Basophils # (Auto) 0.1 TH/MM3 CBC Comment DIFF FINAL Differential Comment Urine Opiates Screen NEG Urine Barbiturates Screen NEG Urine Amphetamines Screen NEG Urine Benzodiazepines Screen NEG Urine Cocaine Screen POS Urine Cannabinoids Screen NEG MDM Medical Decision Making Medical Screen Exam Complete: Yes Emergency Medical Condition: Yes Medical Record Reviewed: Yes Differential Diagnosis MDM: High Differential diagnoses: Schizophrenia, schizoaffective disorder, bipolar, anxiety, depression, adjustment reaction, mood disorder NOS, ODD, depressive disorder NOS, dementia, dementia with agitation, psychosis NOS, substance induced mood disorder, DMDD, Asperger syndrome, infection,electrolyte abnormality, malingering. Narrative Course Mental health screening discussed with the patient. Psychiatric screen ordered. The patient is been medically cleared. The patient is not acutely suicidal or homicidal. She does not meet criteria under a Bennett act. She does not need inpatient management. Patient does have a history of polysubstance abuse and chronic pain. She is out of her Suboxone and has been doing cocaine and marijuana. Patient's Bennett act has been lifted. This is substance induced mood disorder Diagnosis Primary Impression: Substance induced mood disorder Patient Instructions: General Instructions Additional Instructions: Rest. Increase fluids. Avoid alcohol. Avoid illegal substances. Follow-up with [facility] for detox. Do not operate a car or any heavy machinery under the influence of alcohol or drugs. Follow-up with a medical doctor this week. Return to the ER for emergencies Med/Other Pt SpecificInfo: No Change to Meds Scripts No Active Prescriptions or Reported Meds Disposition: 01 DISCHARGE HOME Condition: Stable Miah Melissa Oct 10, 2017 22:21
== END 2017-10-10 23:01 | disposition home or self-care (01) ==
LOC: NEPJ 19:43
DX: M79.605 Pain in left leg (principal); M79.604 Pain in right leg; F19.94 Other psychoactive substance use, unspecified with psychoactive substance-induced mood disorder; F10.10 Alcohol abuse, uncomplicated; F14.10 Cocaine abuse, uncomplicated; M19.90 Unspecified osteoarthritis, unspecified site; F31.9 Bipolar disorder, unspecified; F41.8 Other specified anxiety disorders; J44.9 Chronic obstructive pulmonary disease, unspecified; M79.7 Fibromyalgia; B19.20 Unspecified viral hepatitis C without hepatic coma; F12.90 Cannabis use, unspecified, uncomplicated; F17.210 Nicotine dependence, cigarettes, uncomplicated
CPT/HCPCS: 80307; 85025; 99283